=== PATIENT | female | born 1960 | race Caucasian/White ===

== ENCOUNTER → 2017-01-20 | Outpatient (CLI) | payer BC ==
[~2017-01-20] MED LIST: ACET-1175 PO; OXYC1TAB3 PO; VNTHFA/IN INH
--- NOTE | 2017-01-20 11:05 | DIAGNOSTIC IMAGING REPORT ---
CHEST 2 VIEWS ROUTINE CLINICAL HISTORY: CHEST TIGHTNESS dyspnea COMPARISON STUDY: No previous studies for comparison. FINDINGS: The bones soft tissues and hemidiaphragms are normal. The cardiomediastinal silhouette is normal. The lungs are clear. The pulmonary vasculature is normal. IMPRESSION: Negative chest. Electronically signed by: Lorenzo Bean M.D. 01/20/2017 11:03 AM Dictated Date/Time: 01/20/2017 11:03 AM
[2017-01-20 13:34] LABS: BASO % 0.7 %; BASO ABS # 0.04 K/uL (0-0.2); COMPLETE YES; EOS % 8.5 %; HEMATOCRIT 42.1 % (37-47); IG% 0.2 %; LYMPH % 32.4 %; MEAN CELL VOLUME 93.6 fL (80-100); MEAN CORPUSCULAR HEMOGLOBIN 32.7 pg (25-34); MEAN CORPUSCULAR HGB CONC 34.9 g/dl (32-36); MONO % 7.2 %; PLATELET COUNT 264 K/uL (130-400); WHITE BLOOD COUNT 5.56 K/uL (4.8-10.8)
[2017-01-20 14:50] LABS: ALT/SGPT 26 U/L (12-78); AST/SGOT 16 U/L (15-37); BLOOD UREA NITROGEN 14 mg/dl (7-18); BUN/CREATININE RATIO 18.3 (10-20); CALCIUM 9.3 mg/dl (8.5-10.1); CARBON DIOXIDE 28 mmol/L (21-32); CHLORIDE 107 mmol/L (98-107); CREATININE 0.74 mg/dl (0.60-1.20); GLUCOSE 94 mg/dl (70-99); SODIUM 141 mmol/L (136-145)
[2017-01-20 15:02] LABS: ALB/GLOB RATIO 1.2 (0.9-2); ALKALINE PHOSPHATASE 72 U/L (45-117); CHOLESTEROL 202 mg/dl (0-200); CHOLESTEROL/HDL RATIO 2.7; HDL CHOLESTEROL 74 mg/dl; LDL CHOLESTEROL CALCULATED 111 mg/dl; MAGNESIUM 2.2 mg/dl (1.8-2.4); TRIGLYCERIDES 84 mg/dl (0-150); VERY LOW DENSITY LIPOPROT CALC 17 mg/dl
== END | disposition home or self-care (01) ==
LOC: C.RADBC 10:34
PROVIDERS: ATTEND Nurse Practitioner Family
DX: R07.89 Other chest pain (principal); Z11.59 Encounter for screening for other viral diseases; Z13.220 Encounter for screening for lipoid disorders; Z13.1 Encounter for screening for diabetes mellitus

== ENCOUNTER 2017-02-19 08:26 | Emergency (ER) | payer BC ==
[~2017-02-19] VITALS: Ht 167.6 cm; Wt 71.4 kg
[2017-02-19 08:27] VITALS: TEMP 37; Ht 167.6 cm; Wt 71.4 kg
[2017-02-19] MEDS ORDERED: ALBUT/IPRATROP 3MG/0.5MG NEB 3 ML VIAL INH STA (08:33)
[2017-02-19 08:44] VITALS: O2SAT 100
[2017-02-19] MEDS ORDERED: OPTIRAY 320 IV PRN (08:45)
[2017-02-19] MEDS ORDERED: VNTHFA/IN INH (08:49)
[2017-02-19] MEDS ORDERED: ACET-1175 PO (08:49)
[2017-02-19 08:52] LABS: BASO % 0.6 %; BASO ABS # 0.03 K/uL (0-0.2); COMPLETE YES; EOS % 7.3 %; HEMATOCRIT 42.6 % (37-47); IG% 0.2 %; LYMPH % 38.8 %; LYMPH ABS # 2.07 K/uL (1.2-3.4); MEAN CELL VOLUME 92.2 fL (80-100); MEAN CORPUSCULAR HEMOGLOBIN 32.3 pg (25-34); MEAN PLATELET VOLUME 10.3 fL (7.4-10.4); MONO % 8.4 %; NEUT % 44.7 %; PLATELET COUNT 291 K/uL (130-400); RED BLOOD COUNT 4.62 M/uL (4.2-5.4); WHITE BLOOD COUNT 5.34 K/uL (4.8-10.8)
[2017-02-19 09:00] LABS: PROTHROMBIN TIME (PATIENT) 10.6 SECONDS (9.0-12.0)
[2017-02-19 09:07] LABS: POINT OF CARE PRO-BNP 52 pg/ml (0-900); POINT OF CARE TROPONIN I < 0.030 ng/ml (0-0.045)
[2017-02-19 09:09] LABS: BUN/CREATININE RATIO 21.9 (10-20); CALCIUM 9.4 mg/dl (8.5-10.1); CREATININE 0.84 mg/dl (0.60-1.20); POTASSIUM 3.5 mmol/L (3.5-5.1)
[2017-02-19 09:17] LABS: ALB/GLOB RATIO 1.3 (0.9-2); CKMB/CK RATIO 1.7 (0-3.0)
--- NOTE | 2017-02-19 09:41 | DIAGNOSTIC IMAGING REPORT ---
(CHEST FOR PE) ANGIO WITH CLINICAL HISTORY: 56 years-old Female presenting with shortness of breath for one month, chest tightness, clinical concern for pulmonary embolus. TECHNIQUE: Multidetector CT angiography of the chest was performed after administration of intravenous contrast. 3-D volumetric and maximum intensity projection (MIP) images were subsequently reconstructed for review. IV contrast: 83 mL of Optiray 320. COMPARISON: Correlation made to plain radiographs of the chest from 01/20/2017. CT DOSE: The estimated cumulative dose is 220.03 mGy.cm. FINDINGS: [employer] topogram: Cortical compression plate and screw fixation of the left scapula. Cholecystectomy clips. Pulmonary vasculature: The study is adequate for assessment of the pulmonary vascular tree. No filling defect within the pulmonary arteries to suggest embolus. Main pulmonary artery not enlarged. No flattening of the interventricular septum. No intracardiac filling defect. Remaining chest: On soft tissue windows, tiny nodule noted in the posterior right lobe of the thyroid. No axillary or supraclavicular lymphadenopathy. Few prominent prevascular mediastinal and right hilar lymph nodes. Four-vessel arch noted. Top normal heart size. Trace pericardial effusion. No pleural effusion. Upper abdomen remarkable for cholecystectomy clips. Well-defined hypodensity in the left hepatic lobe indeterminate but likely hepatic cyst or hamartoma. Chest wall normal. On lung windows, minimal dependent opacities likely atelectasis. Mosaic attenuation at the apices may indicate small airways disease. Mild bronchial wall thickening may also be present. On bone windows, cortical compression plate and screw fixation of the lateral left scapula. No apparent hardware complication. IMPRESSION: 1. No evidence of pulmonary embolus. 2. Mosaic attenuation and mild bronchial wall thickening may suggest small airways disease. No focal infiltrate to suggest pneumonia. 3. Subcentimeter right hilar and mediastinal lymph nodes likely reactive. Electronically signed by: Reese Baez M.D. 02/19/2017 9:39 AM Dictated Date/Time: 02/19/2017 9:28 AM
--- NOTE | 2017-02-19 11:03 | EMERGENCY ROOM VISIT NOTE ---
History Report prepared by Eron: Ariana Dowling Under the Supervision of: Dr. Anatoly Murillo D.O. First contact with patient: 08:32 Chief Complaint: SHORTNESS OF BREATH Stated Complaint: CHEST SQUEEZING/ SHORTNESS OF BREATH Nursing Triage Summary: Pt reports "struggling to breathe even when using inhalers every hour. I saw the pulmonary dr on and had some tests done and a breathing treatment, which helped. Yesterday it got bad again. I am coughing up dark yellow. I've been having trouble breathing for a few weeks." Denies hx of asthma. History of Present Illness The patient is a 56 year old female who presents to the Emergency Room with complaints of worsening SOB for the past 1.5 months. The patient had a chest X- ray 1 month ago as an outpatient which showed no acute disease. She went to her PCP 2 days ago and received a breathing treatment which helped. She was told that she might have adult onset asthma or COPD. Since then, she has had continued SOB. Her SOB has improved after using her inhaler. She spoke with her PCP this morning who told her that she might have an infection and might require a CT. She reports a squeezing sensation in her chest and a productive cough. She feels anxious and believes that she might be having anxiety. She denies any history of smoking, but notes that her parents did. Source of History: patient Onset: 1.5 months Position: other (global) Quality: other (SOB) Timing: worsening Associated Symptoms: + cough, + chest pain Note: Pt feels anxious. Review of Systems See HPI for pertinent positives & negatives. A total of 10 systems reviewed and were otherwise negative. Past Medical & Surgical Surgical Problems: (1) History of back surgery Family History Cancer Heart disease Kidney disease Kidney stones Lung disease Social History Smoking Status: Never Smoker Occupation Status: employed Current/Historical Medications Scheduled Acetaminophen (Tylenol), 650 MG PO NEEDED Scheduled PRN Albuterol Hfa (Ventolin Hfa), 2 PUFFS INH Q4 PRN for Shortness of Breath Allergies Coded Allergies: Benzoin (Verified Allergy, Unknown, 07/25/16) Gabapentin (Verified Allergy, Unknown, 07/25/16) Physical Exam Vital Signs Date Time Temp Pulse Resp B/P (MAP) Pulse Ox O2 Delivery O2 Flow Rate FiO2 02/19/17 11:41 74 16 109/75 95 7 11:12 70 19 97 7 11:12 70 19 97 7 11:07 71 17 98 02/19/17 11:07 71 17 98 7 11:02 71 22 96 7 11:02 71 22 96 02/19/17 10:57 69 12 99 02/19/17 10:57 69 12 99 02/19/17 10:52 63 16 95 02/19/17 10:52 63 16 95 02/19/17 10:47 71 16 96 02/19/17 10:47 71 16 96 02/19/17 10:42 71 17 99 02/19/17 10:42 71 17 99 02/19/17 10:37 74 21 96 02/19/17 10:32 72 19 95 02/19/17 10:27 68 13 96 02/19/17 10:22 76 17 94 02/19/17 10:17 73 10 95 02/19/17 10:12 65 16 98 02/19/17 10:07 60 11 96 02/19/17 10:02 63 15 98 02/19/17 09:57 77 17 100 02/19/17 09:52 76 12 88 02/19/17 09:47 73 17 95 02/19/17 09:42 75 19 93 02/19/17 09:37 79 15 97 02/19/17 09:32 69 17 99 02/19/17 09:29 117/55 02/19/17 09:12 69 11 96 02/19/17 09:07 78 30 98 02/19/17 09:02 112/60 02/19/17 09:01 70 13 100 02/19/17 08:56 70 14 100 02/19/17 08:51 71 20 100 02/19/17 08:50 81 02/19/17 08:44 100 Room Air 02/19/17 08:43 133/91 02/19/17 08:27 37.0 90 20 142/66 99 Room Air Physical Exam CONSTITUTIONAL/VITAL SIGNS: Reviewed / noted above. GENERAL: Non-toxic in appearance. INTEGUMENTARY: Warm, dry, and [place]. HEAD: Normocephalic. EYES: without scleral icterus or trauma. ENT/OROPHARYNX: clear and moist. LYMPHADENOPATHY/NECK: Is supple without lymphadenopathy or meningismus. RESPIRATORY: Lungs clear and equal. CARDIOVASCULAR: Regular rate and rhythm. GI/ABDOMEN: Soft and nontender. No organomegaly or pulsatile mass. No rebound or guarding. Normal bowel sounds. EXTREMITIES: Warm and well perfused. BACK: No CVA tenderness. NEUROLOGICAL: Intact without focal deficits. PSYCHIATRIC: Anxious appearing. MUSCULOSKELETAL: Normally developed with good muscle tone. Medical Decision & Procedures ER Provider Diagnostic Interpretation: Radiology results as stated below per my review and radiologist interpretation: (CHEST FOR PE) ANGIO WITH CLINICAL HISTORY: 56 years-old Female presenting with shortness of breath for one month, chest tightness, clinical concern for pulmonary embolus. TECHNIQUE: Multidetector CT angiography of the chest was performed after administration of intravenous contrast. 3-D volumetric and maximum intensity projection (MIP) images were subsequently reconstructed for review. IV contrast: 83 mL of Optiray 320. COMPARISON: Correlation made to plain radiographs of the chest from 01/20/2017. CT DOSE: The estimated cumulative dose is 220.03 mGy.cm. 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 Cholecystectomy clips. Pulmonary vasculature: The study is adequate for assessment of the pulmonary vascular tree. No filling defect within the pulmonary arteries to suggest embolus. Main pulmonary artery not enlarged. No flattening of the interventricular septum. No intracardiac filling defect. Remaining chest: On soft tissue windows, tiny nodule noted in the posterior right lobe of the thyroid. No axillary or supraclavicular lymphadenopathy. Few prominent prevascular mediastinal and right hilar lymph nodes. Four-vessel arch noted. Top normal heart size. Trace pericardial effusion. No pleural effusion. Upper abdomen remarkable for cholecystectomy clips. Well-defined hypodensity in the left hepatic lobe indeterminate but likely hepatic cyst or hamartoma. Chest wall normal. On lung windows, minimal dependent opacities likely atelectasis. Mosaic attenuation at the apices may indicate small airways disease. Mild bronchial wall thickening may also be present. On bone windows, cortical compression plate and screw fixation of the lateral left scapula. No apparent hardware complication. IMPRESSION: 1. No evidence of pulmonary embolus. 2. Mosaic attenuation and mild bronchial wall thickening may suggest small airways disease. No focal infiltrate to suggest pneumonia. 3. Subcentimeter right hilar and mediastinal lymph nodes likely reactive. Electronically signed by: Reese Baez M.D. 02/19/2017 9:39 AM Dictated Date/Time: 02/19/2017 9:28 AM Laboratory Results 02/19/17 08:40 Red Blood Count 4.62, Mean Corpuscular Volume 92.2, Mean Corpuscular Hemoglobin 32.3, Mean Corpuscular Hemoglobin Concent 35.0, Mean Platelet Volume 10.3, Neutrophils (%) (Auto) 44.7, Lymphocytes (%) (Auto) 38.8, Monocytes (%) (Auto) 8.4, Eosinophils (%) (Auto) 7.3, Basophils (%) (Auto) 0.6, Neutrophils # (Auto) 2.39, Lymphocytes # (Auto) 2.07, Monocytes # (Auto) 0.45, Eosinophils # (Auto) 0.39, Basophils # (Auto) 0.03 02/19/17 08:40 Test 02/19/17 08:40 02/19/17 08:44 White Blood Count 5.34 K/uL (4.8-10.8) Red Blood Count 4.62 M/uL (4.2-5.4) Hemoglobin 14.9 g/dL (12.0-16.0) Hematocrit 42.6 % (37-47) Mean Corpuscular Volume 92.2 fL (80-100) Mean Corpuscular Hemoglobin 32.3 pg (25-34) Mean Corpuscular Hemoglobin Concent 35.0 g/dl (32-36) Platelet Count 291 K/uL (130-400) Mean Platelet Volume 10.3 fL (7.4-10.4) Neutrophils (%) (Auto) 44.7 % Lymphocytes (%) (Auto) 38.8 % Monocytes (%) (Auto) 8.4 % Eosinophils (%) (Auto) 7.3 % Basophils (%) (Auto) 0.6 % Neutrophils # (Auto) 2.39 K/uL (1.4-6.5) Lymphocytes # (Auto) 2.07 K/uL (1.2-3.4) Monocytes # (Auto) 0.45 K/uL (0.11-0.59) Eosinophils # (Auto) 0.39 K/uL (0-0.5) Basophils # (Auto) 0.03 K/uL (0-0.2) RDW Standard Deviation 42.5 fL (36.4-46.3) RDW Coefficient of Variation 12.6 % (11.5-14.5) Immature Granulocyte % (Auto) 0.2 % Immature Granulocyte # (Auto) 0.01 K/uL (0.00-0.02) Prothrombin Time 10.6 SECONDS (9.0-12.0) Prothromb Time International Ratio 1.0 (0.9-1.1) Activated Partial Thromboplast Time 25.1 SECONDS (21.0-31.0) Partial Thromboplastin Ratio 1.0 Anion Gap 7.0 mmol/L (3-11) Est Creatinine Clear Calc Drug Dose 77.5 ml/min Estimated GFR () 91.3 Estimated GFR (Non- 78.8 BUN/Creatinine Ratio 21.9 (10-20) Calcium Level 9.4 mg/dl (8.5-10.1) Total Bilirubin 0.6 mg/dl (0.2-1) Aspartate Amino Transf (AST/SGOT) 19 U/L (15-37) Alanine Aminotransferase (ALT/SGPT) 23 U/L (12-78) Alkaline Phosphatase 71 U/L (45-117) Total Creatine Kinase 109 U/L (26-192) Creatine Kinase MB 1.9 ng/ml (0.5-3.6) Creatine Kinase MB Ratio 1.7 (0-3.0) Total Protein 7.7 gm/dl (6.4-8.2) Albumin 4.4 gm/dl (3.4-5.0) Globulin 3.3 gm/dl (2.5-4.0) Albumin/Globulin Ratio 1.3 (0.9-2) Bedside D-Dimer 187 ng/mlFEU (0-450) Bedside Troponin I < 0.030 ng/ml (0-0.045) RR-Bcz-V-Type Natriuretic Peptide 52 pg/ml (0-900) Laboratory results as stated above per my review. Medications Administered Medications (Trade) Dose Ordered Sig/Aries Route Start Time Stop Time Status Last Admin Dose Admin Albuterol/ Ipratropium (Duoneb) 3 ml NOW STAT INH 02/19/17 08:33 02/19/17 08:34 DC 02/19/17 08:47 3 ML ECG Indication: SOB/dyspnea Rate (beats per minute): 71 Rhythm: normal sinus Findings: no ectopy, other (no acute injury) ED Course 0833: Duoneb 3 ml INH. 0837: Previous medical records were reviewed. The patient was evaluated in room B12B. A complete history and physical examination was performed. 1104: On reevaluation, the patient is resting comfortably. I discussed the results and findings with the patient. She verbalized agreement of the treatment plan. She was discharged home. Medical Decision the differential was considered includes acute myocardial infarction, acute coronary syndrome, myocarditis, pericarditis, pericardial effusions /tamponad, esophageal perforation, pulmonary embolism, pneumonia, pneumothorax, cardiomyopathy, congestive heart, anemia , COPD/asthma exacerbation. This is a 56-year-old female who presents to the ED with a chief complaint of shortness of breath. The patient saw Dany Lorenzana (pulmonology PA-C) on Thursday. The patient has some outpatient testing pending. She had a normal chest x-ray a month ago. She has been feeling that she has intermittent shortness of breath for weeks. The patient's vital signs here are normal. Her physical exam did not reveal any abnormalities. Her lungs are clear. She appears to be slightly anxious. An EKG shows a normal sinus rhythm. CBC is normal, d-dimer is negative, CT scan of the chest was negative for acute disease. Some small airway disease was suggested. Troponin was negative. Complete metabolic panel was unremarkable. Patient was given a DuoNeb treatment. She is told the results. She is felt to be stable for discharge. The patient clinically feels her symptoms are related to anxiety. I feel this is a large component of her symptoms as well. Medication Reconcilliation Current Medication List: was personally reviewed by me Blood Pressure Screening Patient's blood pressure: Elevated blood pressure Blood pressure disposition: Elevated BP felt to be situational Impression Primary Impression: Dyspnea Additional Impression: Anxiety Scribe Attestation The scribe's documentation has been prepared under my direction and personally reviewed by me in its entirety. I confirm that the note above accurately reflects all work, treatment, procedures, and medical decision making performed by me. Departure Information Dispostion Home / Self-Care Referrals No Doctor, Assigned (PCP) Patient Instructions [facility] Additional Instructions Follow-up with your doctor for further care and evaluation in 1-2 days. Return to the emergency department for worsening or new symptoms or any concerns. You have been examined and treated today on an emergency basis only. This is not a substitute for, or an effort to provide, complete comprehensive medical care. It is impossible to recognize and treat all injuries or illnesses in a single emergency department visit. It is therefore important that you follow up closely with your doctor. Call as soon as possible for an appointment. Problem Qualifiers
[2017-02-19 11:41] VITALS: BP 109/75; PULSE 74; O2SAT 95
== END 2017-02-19 11:42 | disposition home or self-care (01) ==
LOC: C.EDB 08:27
DX: R06.00 Dyspnea, unspecified (principal); F41.9 Anxiety disorder, unspecified; Z84.1 Family history of disorders of kidney and ureter

== ENCOUNTER → 2017-03-02 | Outpatient (CLI) | payer BC ==
[~2017-03-02] MED LIST changes: -OXYC1TAB3 PO
--- NOTE | 2017-03-02 17:10 | ECHOCARDIOGRAM REPORT ---
*NOTICE TO RECEIVING DEMOCRAT AGENCY This information is strictly Confidential and protected under [place] law. [place] law prohibits you from making any further disclosure of this information unless further disclosure is expressly permitted by the written consent of the person to whom it pertains or is authorized by law. A general authorization for the release of medical or other information is not sufficient for this purpose. Hospital accepts no responsibility if the information is made available to any other person, INCLUDING THE PATIENT. Interpretation Summary * Name: RAFFY KHAN Study Date: 03/02/2017 12:51 PM BP: 115/53 mmHg * Patient Location: [facility] HR: 57 * : 1960 (M/d/yyyy) Gender: Female Height: 66 in * Age: 56 yrs Ethnicity: [place] Weight: 155 lb * Ordering Physician: Dany Lorenzana * Referring Physician: Dany Lorenzana PA-C * Performed By: Thea Haines RCS * * Reason For Study: Chest Pain, SOB * BSA: 1.8 m2 * Normal biventricular systolic function. * Normal chamber dimensions. * Trace mitral and tricuspid regurgitation. * No significant valvular abnormalities. Procedure Details * A complete two-dimensional transthoracic echocardiogram was performed (2D, M-mode, Doppler and color flow Doppler). Left Ventricle * The left ventricle is normal in size. * There is normal left ventricular wall thickness. * Ejection Fraction = 65-70%. * Left ventricular systolic function is normal. * The left ventricular wall motion is normal. Right Ventricle * The right ventricle is normal in size and function. Atria * The left atrial size is normal. * Right atrial size is normal. * No ASD detected; PFO is not assessed. Mitral Valve * The mitral valve is normal. * There is no mitral valve stenosis. * There is trace mitral regurgitation. Tricuspid Valve * The tricuspid valve is normal. * There is no tricuspid stenosis. * There is trace tricuspid regurgitation. Aortic Valve * The aortic valve is trileaflet. * The aortic valve opens well. * Aortic stenosis is absent. * No aortic regurgitation is present. Pulmonic Valve * The pulmonic valve is not well seen, but is grossly normal. * There is no pulmonic valvular stenosis. * There is no pulmonic valvular regurgitation. Great Vessels * The aortic root is normal size. Pericardium/Pleural * There is no pericardial effusion. Great Vessels * Normal inferior vena cava diameter and respiratory variation suggests normal central venous pressure. MMode 2D Measurements and Calculations IVSd 0.86 cm IVSs 1.0 cm LVIDd 4.5 cm LVIDs 2.8 cm LVPWd 0.86 cm LVPWs 1.1 cm IVS/LVPW 10 FS 39.2 % EDV(Teich) 94.0 ml ESV(Teich) 28.4 ml EF(Teich) 69.8 % EDV(cubed) 93.0 ml ESV(cubed) 20.9 ml EF(cubed) 77.5 % % IVS thick 17.9 % % LVPW thick 28.7 % LV mass(C)d 126.5 grams LV mass(C)dI 70.5 grams/m\S\2 LV mass(C)s 79.7 grams LV mass(C)sI 44.4 grams/m\S\2 SV(Teich) 65.6 ml SI(Teich) 36.5 ml/m\S\2 SV(cubed) 72.1 ml SI(cubed) 40.2 ml/m\S\2 Ao root diam 3.5 cm Ao root area 9.4 cm\S\2 ACS 1.9 cm LA dimension 2.5 cm asc Aorta Diam 2.5 cm LA/Ao 0.74 LVAd ap4 27.8 cm\S\2 LVLd ap4 7.9 cm EDV(MOD-sp4) 81.1 ml EDV(sp4-el) 82.4 ml LVAs ap4 14.5 cm\S\2 LVLs ap4 6.8 cm ESV(MOD-sp4) 25.8 ml ESV(sp4-el) 26.3 ml EF(MOD-sp4) 68.2 % EF(sp4-el) 68.0 % LVAd ap2 34.7 cm\S\2 LVLd ap2 8.9 cm EDV(MOD-sp2) 113.5 ml EDV(sp2-el) 115.1 ml LVAs ap2 17.4 cm\S\2 LVLs ap2 6.3 cm ESV(MOD-sp2) 39.8 ml ESV(sp2-el) 41.0 ml EF(MOD-sp2) 64.9 % EF(sp2-el) 64.4 % LVLd %diff 10.5 % EDV(MOD-bp) 101.0 ml LVLs %diff -7.98 % ESV(MOD-bp) 32.8 ml EF(MOD-bp) 67.5 % SV(MOD-sp4) 55.3 ml SI(MOD-sp4) 30.8 ml/m\S\2 SV(MOD-sp2) 73.6 ml SI(MOD-sp2) 41.0 ml/m\S\2 SV(MOD-bp) 68.2 ml SI(MOD-bp) 38.0 ml/m\S\2 SV(sp4-el) 56.1 ml SI(sp4-el) 31.2 ml/m\S\2 SV(sp2-el) 74.1 ml SI(sp2-el) 41.3 ml/m\S\2 Doppler Measurements and Calculations MV E max chavo 66.9 cm/sec MV A max chavo 46.9 cm/sec MV E/A 1.4 MV dec time 0.22 sec Ao V2 max 119.0 cm/sec Ao max PG 5.7 mmHg Ao max PG (full) 0.16 mmHg LV V1 max PG 5.5 mmHg LV V1 max 117.3 cm/sec PA V2 max 74.1 cm/sec PA max PG 2.2 mmHg TR max chavo 113.9 cm/sec
== END | disposition home or self-care (01) ==
LOC: C.CPL 12:41
PROVIDERS: ATTEND Physician Assistant
DX: R06.02 Shortness of breath (principal); R07.89 Other chest pain

== ENCOUNTER → 2018-02-19 | Outpatient (CLI) | payer BC ==
[2018-02-19 13:18] LABS: BASO % 0.1 %; BASO ABS # 0.01 K/uL (0-0.2); EOS % 2.2 %; EOS ABS # 0.22 K/uL (0-0.5); HEMATOCRIT 41.8 % (37-47); HEMOGLOBIN 14.5 g/dL (12.0-16.0); IG# 0.02 K/uL (0.00-0.02); LYMPH % 23.3 %; LYMPH ABS # 2.36 K/uL (1.2-3.4); MEAN CELL VOLUME 92.5 fL (80-100); MEAN CORPUSCULAR HEMOGLOBIN 32.1 pg (25-34); MEAN CORPUSCULAR HGB CONC 34.7 g/dl (32-36); MEAN PLATELET VOLUME 10.5 fL (7.4-10.4); MONO % 6.3 %; MONO ABS # 0.64 K/uL (0.11-0.59); NEUT % 67.9 %; NEUT ABS # 6.86 K/uL (1.4-6.5); PLATELET COUNT 301 K/uL (130-400); RED CELL DISTRIBUTION WIDTH CV 13.1 % (11.5-14.5); WHITE BLOOD COUNT 10.11 K/uL (4.8-10.8)
== END | disposition home or self-care (01) ==
LOC: C.LAB1850 12:32
PROVIDERS: ATTEND Internal Medicine Pulmonary Disease
DX: J30.9 Allergic rhinitis, unspecified (principal); J45.909 Unspecified asthma, uncomplicated

== ENCOUNTER 2023-07-22 09:31 | Inpatient (IN) ==
[2023-07-22] MEDS ORDERED: SODIUM CHLORIDE 0.9% 1,000 ML IV SCH (09:45)
[2023-07-22] MEDS ORDERED: ALBUT/IPRATROP 3MG/0.5MG NEB 3 ML VIAL NEB STA (09:51)
[2023-07-22] MEDS ORDERED: ACETAMINOPHEN 1,000 MG/100 ML VIAL IV STA (09:51)
[2023-07-22] MEDS ORDERED: ONDANSETRON INJ 2 MG/ML 2 ML VIAL IV STA (09:51)
--- NOTE | 2023-07-22 09:58 | Emergency Department Note ---
Impression & Plan Weakness, Influenza A, Acute dehydration, Wheezing, Lower back pain, Fall ED Provider Note NAME: RAFFY GUILLEN AGE: 62 SEX: F : 1960 ARRIVES VIA: Walk-In INFORMANT: [Patient] ED PROVIDER(S): [Munir Blanco MD] CHIEF COMPLAINT: Illness HISTORY OF PRESENT ILLNESS: The patient is a 62-year-old female who presents with weakness and fever and cough. She has been sick for a week. The patient was diagnosed with influenza A on the , 6 days ago. She has asthma. She was discharged with steroids because of the asthma. She declined the use of Tamiflu. The patient states that her vomiting seems to have stopped but, she still coughing, she is still weak, she is still exhausted. She is having some slight diarrhea. The patient has not had urinary burning. She has noticed some shortness of breath. She just is not getting better. The patient did take some Advil this morning. The patient did fall off of the toilet within the last couple of days. This was secondary to weakness and a coughing fit. She injured her right low back and pelvis. She has not noticed any bruising. PMHx/PSHx/Social Hx: See Below PHYSICAL EXAM: GENERAL: Patient is in no acute distress. HEENT: No acute trauma, normocephalic atraumatic, mucous membranes dry, no nasal congestion. NECK: No stridor, no adenopathy, no meningismus, trachea is midline. LUNGS: Wheezing bilaterally, no respiratory distress, no rhonchi. Dry cough noted. HEART: Without murmurs gallops or rubs, regular rate and rhythm. ABDOMEN: Soft, nontender, no peritonitis. EXTREMITIES: No cyanosis, full range of motion of all the joints without pain or difficulty. NEUROLOGIC: Oriented x 3, no acute motor or sensory deficits, no focal weakness. SKIN: No jaundice, no diaphoresis. Back: No midline lumbar discomfort. No contusions. She is tender over the right lumbar musculature and right superior pelvic brim. DIFFERENTIAL DIAGNOSIS: Pneumonia, bronchitis, dehydration, electrolyte imbalance, bacteremia or sepsis, UTI, electrolyte imbalance, anemia, among others. EMERGENCY DEPARTMENT PROCEDURES: MEDICAL DECISION MAKING: There is no leukocytosis or concerning anemia. There is a normal platelet count. Potassium somewhat low at 3.2, no renal failure. Lactic acid level is not elevated making severe sepsis less likely. No concerning liver enzyme elevation. The patient appeared to be in a euthyroid state. ECG shows a sinus rhythm, no ST elevation. Cardiac enzyme testing x 1 is not consistent with acute cardiac injury. Urinalysis shows some ketones, no infection. Respiratory bio fire was positive for influenza A. Chest film did not show pneumonia or CHF. On exam, the patient appeared weak and dehydrated. Films of the lumbar spine and pelvis were performed, there was no fracture. The patient received IV saline, 2 L. The patient received oral potassium, IV Zofran, a DuoNeb. She was given IV Tylenol. The patient still feels weak and washed out. She presented febrile. She had fallen at home because of her weakness and fatigue. The patient is in need of a hospital stay. She has failed outpatient treatment. She has influenza A and this has flared her asthma and led to her weakness and dehydration. I spoke with the patient and with her friends. I did speak with case management and the on-call hospitalist. Of note, the patient's back pain appears musculoskeletal, I find no evidence for fracture on today's workup. Prior/Outside records/notes reviewed: ED visit note from 07/16/2023 discussing her diagnosis of influenza A and the plan moving forward. ECG per my interpretation: Indication was weakness. The ECG shows a sinus rhythm with a first-degree AV block. There is no ST elevation, no PVCs. There is a potential old septal infarct seen. QTc is 414. Continuous Cardiac Monitoring per my interpretation: An order was placed for continuous cardiac monitoring. The monitor shows a rate of 75 with normal sinus rhythm. Imaging/x-ray results per my interpretation: Chest x-ray did not show mediastinal widening, pneumonia or pneumothorax. Lumbar spine series and pelvis film did not show any fracture or bony dislocation. Chronic Medical/Social conditions affecting care: History of asthma. Care/Management discussed with: Case management, the on-call hospitalist. Level of care consideration(s): After review of the information above and other included data: --I believe the patient requires escalation of care to admission DISPOSITION: Admission Past Med/Surg History Medical History (Updated 07/22/23 @ 16:36 by Munir Blanco MD) Asthma Surgical History S/P cholecystectomy S/P wrist surgery S/P shoulder surgery History of back surgery Family History Mother Cancer Father Congestive heart failure Denies family history of Ovarian cancer Prostate cancer Myocardial infarction Breast cancer Colorectal cancer Social History Smoking Status: Never smoker Second Hand Exposure: No; Do You Dip or Chew Tobacco: No; Hx Alcohol Use: Yes Alcohol type: wine Hx Substance Use: No Preferred Language: Albanian Communication Ability: Effective Visual Impairment: No Limitations Hearing Ability: Normal Guest Service Supervisor Required: No Beliefs That Will Affect Care: None marital status: Current Living Situation: Alone current occupational status: employed current occupation: teacher Other Information That Helps Us Care for You: No Feels Safe at Home: Yes Safety Concerns: Feels Safe At This Time Childhood Exposure to Second-Hand Smoke: Yes Dental Care, Regularly: Yes Physical Activity Frequency: 3-4 Times per Week Seatbelt Use: always Assistive Devices: Cane Allergies Allergies Allergy/AdvReac Type Severity Reaction Status Date / Time benzoin Allergy Unknown Unknown Verified 01/11/22 15:52 gabapentin Allergy Unknown Unknown Verified 01/11/22 15:52 Home Meds Home Medications Medication Instructions Recorded Confirmed fexofenadine 180 mg tablet 180 mg PO DAILY PRN Allergic 12/31/18 07/22/23 (Yvonne Allergy) Symptoms montelukast 10 mg tablet 10 mg PO HS 12/31/18 07/22/23 fluticasone 500 mcg-salmeterol 50 1 inh inhalation AMHS 02/16/20 07/22/23 mcg/dose blistr powdr for inhalation (Advair Diskus) tiotropium bromide 2.5 2 inh inhalation QAM 02/16/20 07/22/23 mcg/actuation mist for inhalation (Spiriva Respimat) valacyclovir 1 gram tablet 2,000 mg PO DIRECTED PRN Cold 02/16/20 07/22/23 Sores ondansetron 4 mg disintegrating 4 mg PO DIRECTED PRN Nausea And 07/22/23 07/22/23 tablet Vomiting prednisone 20 mg tablet 20 mg PO DIRECTED 07/22/23 07/22/23 Previous Rx's Medication Instructions Recorded albuterol sulfate 90 mcg/actuation 2 puff inhalation Q4H PRN Wheezing 06/03/19 aerosol inhaler #18 grams albuterol sulfate 2.5 mg/3 mL 2.5 mg (3 mL) inhalation Q4H PRN 06/28/19 (0.083 %) solution for nebulization Wheezing #90 mL Results & Data (ED) Vital Signs Vital Signs - 24 hr 07/22/23 09:38 07/22/23 13:09 07/22/23 13:16 Temperature 38.0 C H Temperature Source Temporal Artery Scan Pulse Rate 75 Pulse Rate [Apical] 50 L Pulse Rhythm Regular Pulse Strength Normal Respiratory Rate 20 18 Respiratory Effort / Characteristics Non-Labored Spontaneous Respiratory Depth Normal Respiratory Pattern Regular Blood Pressure 131/67 Blood Pressure [Right Arm] 111/49 L Blood Pressure Mean 88 Blood Pressure Mean [Right Arm] 69 Blood Pressure Position Sitting Pulse Oximetry 98 98 98 Oxygen Delivery Method Room Air Room Air Room Air Sepsis Recent Fever Within 48 Hours Yes Sepsis New/Unexplained Change in Mental Status No Sepsis Action Taken by Nursing No Action Required Home Medications Current Medication List: was personally reviewed by me Laboratory Data Attestation: I reviewed the patient's lab results. 07/22/23 09:54 07/22/23 09:54 Lab Results 07/22/23 Range/Units 09:54 WBC 4.63 L (4.8-10.8) K/ul RBC 4.68 (4.20-5.40) M/uL Hgb 14.7 (12.0-16.0) g/dl Hct 42.8 (37.0-47.0) % MCV 91.5 (80.0-100.0) fL MCH 31.4 (25.0-34.0) pg MCHC 34.3 (32.0-36.0) g/dL RDW Std Deviation 39.9 (36.4-46.3) fL RDW Coeff of Catarino 11.9 (11.5-14.5) % Plt Count 199 (130-400) K/uL MPV 10.0 (9.4-12.4) fL Immature Gran % (Auto) 0.2 % Neut % (Auto) 46.1 % Lymph % (Auto) 45.8 % [place] % (Auto) 6.9 % Eos % (Auto) 0.6 % Baso % (Auto) 0.4 % Neut # (Auto) 2.13 (1.40-6.50) K/uL Lymph # (Auto) 2.12 (1.20-3.40) K/uL [place] # (Auto) 0.32 (0.11-0.59) K/uL Eos # (Auto) 0.03 (0.00-0.50) K/uL Baso # (Auto) 0.02 (0.00-0.20) K/uL Immature Gran # (Auto) 0.01 (0.01-0.20) K/uL Sodium 141 (136-145) mmol/L Potassium 3.2 L (3.5-5.1) mmol/L Chloride 105 (98-107) mmol/L Carbon Dioxide 26 (21-32) mmol/L Anion Gap 10 (3-11) BUN 20 (6-23) mg/dl Creatinine 0.75 (0.6-1.2) mg/dl Est Cr Clr Drug Dosing 74.7 ml/min Est GFR ( Amer) 100.4 ml/min Est GFR (Non-Af Amer) 86.6 ml/min BUN/Creatinine Ratio 26.7 H (10-20) Glucose 86 (70-99(Fasting)) mg/dl Lactate 1.8 (0.4-2.0) mmol/L Calcium 8.9 (8.6-10.3) mg/dl Magnesium 1.9 (1.7-2.4) mg/dl Total Bilirubin 0.6 (0.2-1.0) mg/dl AST 18 (13-39) U/L ALT 18 (7-52) U/L Alkaline Phosphatase 48 (34-104) U/L Troponin I High Sens 3.8 (0-14) pg/ml Total Protein 6.8 (6.0-8.3) gm/dl Albumin 4.2 (3.4-5.0) gm/dl Globulin 2.6 (2.5-4.0) gm/dl Albumin/Globulin Ratio 1.6 (0.9-2) TSH 1.779 (0.300-4.500) uIu/ml Adenovirus (PCR) Not Detected (NotDetected) B. pertussis DNA (PCR) Not Detected (NotDetected) B.parapertussis DNA PCR Not Detected (NotDetected) C. pneumoniae DNA (PCR) Not Detected (NotDetected) Coronavirus OC43 (PCR) Not Detected (NotDetected) Coronavirus HKU1 (PCR) Not Detected (NotDetected) Coronavirus 229E (PCR) Not Detected (NotDetected) SARS-CoV-2 (PCR) Not Detected (NotDetected) Coronavirus NL63 (PCR) Not Detected (NotDetected) Human Metapneumovir PCR Not Detected (NotDetected) Influenza A (H3) PCR DETECTED A* (NotDetected) Influenza Type B (PCR) Not Detected (NotDetected) M. pneumoniae (PCR) Not Detected (NotDetected) Parainfluenza 1 (PCR) Not Detected (NotDetected) Parainfluenza 2 (PCR) Not Detected (NotDetected) Parainfluenza 3 (PCR) Not Detected (NotDetected) Parainfluenza 4 (PCR) Not Detected (NotDetected) RSV (PCR) Not Detected (NotDetected) Entero/Rhino (PCR) Not Detected (NotDetected) Administered Medications Enoxaparin Sodium (Enoxaparin Inj 40 Mg/0.4 Ml Syr) 40 mg SQ Q24H [facility] Stop: 08/21/23 16:59 Last Admin: 07/22/23 16:22 Dose: Not Given Documented By: JAILENE Guaifenesin (Guaifenesin 600 Mg Tabcr) 1,200 mg PO Q12 [facility] Stop: 08/21/23 13:24 Last Admin: 07/22/23 13:59 Dose: 1,200 mg Documented By: NRCheco Discontinued Medications Albuterol (Albut/Ipratrop 3mg/0.5mg Neb 3 Ml Vial) 3 ml NEB NOW STA; Protocol Stop: 07/22/23 09:52 Last Admin: 07/22/23 09:58 Dose: 3 ml Documented By: DAVID Sodium Chloride (Nss) 1,000 mls @ 999 mls/hr IV .Q1H1M [facility] Stop: 07/22/23 10:45 Last Infusion: 07/22/23 11:26 Dose: Infused Documented By: Admin: 07/22/23 09:58 Dose: 999 mls/hr Documented By: DAVID Acetaminophen (Ofirmev) 1,000 mg in 100 mls @ 400 mls/hr IV NOW STA Stop: 07/22/23 10:05 Last Infusion: 07/22/23 11:26 Dose: Infused Documented By: Admin: 07/22/23 09:58 Dose: 400 mls/hr Documented By: DAVID Sodium Chloride (Nss) 1,000 mls @ 999 mls/hr IV .Q1H1M ONE Stop: 07/22/23 13:00 Last Infusion: 07/22/23 13:11 Dose: Infused Documented By: Admin: 07/22/23 12:07 Dose: 999 mls/hr Documented By: PRINCE Lidocaine (Lidocaine 5% 1 Patch) 1 patch TD NOW STA Stop: 07/22/23 14:25 Last Admin: 07/22/23 14:50 Dose: 1 patch Documented By: PRINCE Ondansetron HCl (Ondansetron Inj 2 Mg/Ml 2 Ml Vial) 4 mg IV NOW STA Stop: 07/22/23 09:52 Last Admin: 07/22/23 09:58 Dose: 4 mg Documented By: DAVID Potassium Chloride (Potassium Chloride Crtab 20 Meq Tabcr) 20 meq PO NOW STA Stop: 07/22/23 12:00 Last Admin: 07/22/23 12:06 Dose: 20 meq Documented By: PRINCE Pseudoephedrine HCl (Pseudoephedrine Hcl 30 Mg Tab) 30 mg PO NOW STA Stop: 07/22/23 14:28 Last Admin: 07/22/23 14:50 Dose: 30 mg Documented By: PRINCE Imaging Data Radiologist's Impression: Chest X-Ray 07/22/23 09:43 XR chest 1V not portable CLINICAL HISTORY: weakness TECHNIQUE: Single frontal radiograph of the chest was obtained. Comparison: Comparison is made to chest radiograph 07/15/2023 FINDINGS: Orthopedic hardware throughout the left scapula is unchanged. The cardiomediastinal silhouette is normal. The lungs are clear. No evidence of pleural effusion or pneumothorax. IMPRESSION: No acute chest disease. ACT 112: Negative or not required by law. Electronically signed by: Getachew Reed M.D. 07/22/2023 11:04 AM Lumbar Spine X-Ray 07/22/23 09:51 LUMBAR SPINE 5 VIEWS HISTORY: Fall. Low back pain. COMPARISON: Lumbar spine 04/26/2021. FINDINGS: Prior cholecystectomy. Posterior decompression and fusion from L4 through S1 with rods. The hardware is intact. No abnormal periprosthetic lucency. No fracture or subluxation within the lumbar spine. The visualized sacrum is intact. Mild disc space narrowing at L2-L3 and L3-L4, unchanged. Moderate facet degenerative changes again noted. IMPRESSION: No fracture or subluxation within the lumbar spine. ACT 112: Negative or not required by law. Electronically signed by: Camilo Stahl M.D. 07/22/2023 11:00 AM Pelvis X-Ray 07/22/23 09:51 XR pelvis 1-2V routine CLINICAL HISTORY: right sided pain, fall COMPARISON: Pelvis radiograph July 25, 2016. CT of the abdomen and pelvis February 16, 2020. FINDINGS: Postoperative findings within the lumbosacral spine are incidentally noted. Sacroiliac joints and symphysis pubis are intact. There is no acute fracture within the pelvis or hips. Mild joint space narrowing and osteophytosis of the right hip is present. No evidence for avascular necrosis of the femoral heads. IMPRESSION: 1. No fractures within the pelvis or hips. 2. Mild right hip osteoarthritis. ACT 112: Negative or not required by law. Electronically signed by: Quique Simons M.D. 07/22/2023 10:59 AM Discharge Plan Visit Data Chief Complaint: Illness Stated Complaint: FLU SYMPTOMS NOT GETTING BETTER ED Provider: Munir Blanco Discharge Problem: Weakness, Influenza A, Acute dehydration, Wheezing, Lower back pain, Fall Patient Disposition: Admitted As Inpatient Condition: Fair Discharge Instructions Interventions: ED Discharge Assessment Last Done: 07/22/23 15:42 Discharge Problem: Lower back pain Qualifiers: Chronicity: acute Back pain laterality: right Sciatica presence: without sciatica Qualified Code(s): M54.50 - Low back pain, unspecified Fall Qualifiers: Encounter type: initial encounter Qualified Code(s): W19.XXXA - Unspecified fall, initial encounter
[2023-07-22 10:16] LABS: Basophils # (auto) 0.02 K/uL (0.00-0.20); Basophils % (auto) 0.4 %; Eosinophils # (auto) 0.03 K/uL (0.00-0.50); Eosinophils % (auto) 0.6 %; Hematocrit (blood only) 42.8 % (37.0-47.0); Hemoglobin 14.7 g/dl (12.0-16.0); Immature Granulocytes # (auto) 0.01 K/uL (0.01-0.20); Immature Granulocytes % (auto) 0.2 %; Lymphocytes # (auto) 2.12 K/uL (1.20-3.40); Lymphocytes % (auto) 45.8 %; Mean Corpuscular Hemoglobin 31.4 pg (25.0-34.0); Mean Corpuscular Hgb Conc 34.3 g/dL (32.0-36.0); Mean Corpuscular Volume 91.5 fL (80.0-100.0); Monocytes # (auto) 0.32 K/uL (0.11-0.59); Monocytes % (auto) 6.9 %; Neutrophils # (auto) 2.13 K/uL (1.40-6.50); Neutrophils % (auto) 46.1 %; Platelet Count 199 K/uL (130-400); RDW Coefficient of Variation 11.9 % (11.5-14.5); RDW Standard Deviation 39.9 fL (36.4-46.3); Red Blood Count 4.68 M/uL (4.20-5.40); White Blood Count 4.63 K/ul (4.8-10.8)
[2023-07-22 10:35] LABS: Albumin Globulin Ratio 1.6 (0.9-2); Albumin Level 4.2 gm/dl (3.4-5.0); BUN Creatinine Ratio 26.7 (10-20); Bilirubin,Total 0.6 mg/dl (0.2-1.0); Calcium 8.9 mg/dl (8.6-10.3); Creatinine Clr Calc Pharmacy 74.7 ml/min; Est GFR (African American) 100.4 ml/min; Est GFR (Non-African American) 86.6 ml/min; Globulin 2.6 gm/dl (2.5-4.0); Magnesium 1.9 mg/dl (1.7-2.4); Potassium 3.2 mmol/L (3.5-5.1); Total Protein 6.8 gm/dl (6.0-8.3)
[2023-07-22 10:42] LABS: Troponin I High Sensitivity 3.8 pg/ml (0-14)
[2023-07-22 10:51] LABS: Thyroid Stimulating Hormone 1.779 uIu/ml (0.300-4.500)
--- NOTE | 2023-07-22 11:01 | XRay Report ---
XR pelvis 1-2V routine CLINICAL HISTORY: right sided pain, fall COMPARISON: Pelvis radiograph July 25, 2016. CT of the abdomen and pelvis February 16, 2020. FINDINGS: Postoperative findings within the lumbosacral spine are incidentally noted. Sacroiliac rangel nts and symphysis pubis are intact. There is no acute fracture within the pelvis or hips. Mild joint space narrowing and osteophytosis of the right hip is present. No evidence for avascular necrosis of the femoral heads. IMPRESSION: 1. No fractures within the pelvis or hips. 2. Mild right hip osteoarthritis. ACT 112: Negative or not required by law. Electronically signed by: Quique Simons M.D. 07/22/2023 10:59 AM
[2023-07-22 11:02] LABS: Adenovirus PCR Not Detected (NotDetected); Bordetella parapertussis PCR Not Detected (NotDetected); Bordetella pertussis PCR Not Detected (NotDetected); Chlamydia pneumoniae PCR Not Detected (NotDetected); Coronavirus 229E PCR Not Detected (NotDetected); Coronavirus CoV-2 (COVID19)PCR Not Detected (NotDetected); Coronavirus HKU1 PCR Not Detected (NotDetected); Coronavirus NL63 PCR Not Detected (NotDetected); Coronavirus OC43PCR Not Detected (NotDetected); Human Metapneumovirus PCR Not Detected (NotDetected); Influenza B PCR Not Detected (NotDetected); Mycoplasma pneumoniae PCR Not Detected (NotDetected); Parainfluenza Virus 1 PCR Not Detected (NotDetected); Parainfluenza Virus 2 PCR Not Detected (NotDetected); Parainfluenza Virus 3 PCR Not Detected (NotDetected); Parainfluenza Virus 4 PCR Not Detected (NotDetected); Respiratory Syncytial VirusPCR Not Detected (NotDetected); Rhinovirus/Enterovirus PCR Not Detected (NotDetected)
--- NOTE | 2023-07-22 11:02 | XRay Report ---
LUMBAR SPINE 5 VIEWS HISTORY: Fall. Low back pain. COMPARISON: Lumbar spine 04/26/2021. FINDINGS: Prior cholecystectomy. Posterior decompression and fusion from L4 through S1 with rods. Th e hardware is intact. No abnormal periprosthetic lucency. No fracture or subluxation within the lumba r spine. The visualized sacrum is intact. Mild disc space narrowing at L2-L3 and L3-L4, unchanged. Mo derate facet degenerative changes again noted. IMPRESSION: No fracture or subluxation within the lumbar spine. ACT 112: Negative or not required by law. Electronically signed by: Camilo Stahl M.D. 07/22/2023 11:00 AM
--- NOTE | 2023-07-22 11:06 | XRay Report ---
XR chest 1V not portable CLINICAL HISTORY: weakness TECHNIQUE: Single frontal radiograph of the chest was obtained. Comparison: Comparison is made to chest radiograph 07/15/2023 FINDINGS: Orthopedic hardware throughout the left scapula is unchanged. The cardiomediastinal silhouette is nor mal. The lungs are clear. No evidence of pleural effusion or pneumothorax. IMPRESSION: No acute chest disease. ACT 112: Negative or not required by law. Electronically signed by: Getachew Reed M.D. 07/22/2023 11:04 AM
[2023-07-22 11:29] LABS: Influenza A (H3) PCR DETECTED (NotDetected)
[2023-07-22] MEDS ORDERED: POTASSIUM CHLORIDE CRTAB 20 MEQ TABCR PO STA (11:59)
[2023-07-22] MEDS ORDERED: SODIUM CHLORIDE 0.9% 1,000 ML IV ONE (12:00)
[2023-07-22 13:31] LABS: Appearance Urine Clear (Clear); Bilirubin Urine Negative (Negative); Blood Urine Negative (Negative); Color Urine Yellow; Glucose Urine UA Negative (Negative); Ketones Urine 1+ (Negative); Leukocyte Esterase Urine Negative (Negative); Nitrite Urine Negative (Negative); Protein Urine Negative (Negative); Specific Gravity Urine 1.011 (1.000-1.030); Urobilinogen Urine Negative (Negative)
[2023-07-22] MEDS: guaiFENesin 600 MG TABCR PO SCH ×2 (13:59→22:15)
[2023-07-22] MEDS ORDERED: LIDOCAINE 5% 1 PATCH TD STA (14:24)
[2023-07-22] MEDS ORDERED: PSEUDOEPHEDRINE HCL 30 MG TAB PO STA (14:27)
--- NOTE | 2023-07-22 14:30 | History & Physical Report ---
Date of Service July 22, 2023 Assessment & Plan (1) Influenza A: (2) Lower back pain: (3) Fall: Plan Ms. Keon Valencia is a 62 year old woman with history of COPD/asthma and allergic rhinitis, who presented to ED due to progressive weakness after being found to be Influenza A positive. Patient admitted given concerns of ongoing weakness/ambulatory dysfunction. There is no wheezing, nor does patient endorse symptoms consistent with exacerbation. Patient completed course of steroids without improvement and notes that she is subjectively better since being in the hospital, and without introduction of corticosteroids. Patient with multiple visits to PCP regarding "asthma exacerbations" but an eval by pulm to aid in inhaler regimen or further optimization given presenting symptoms and repeated steroid bursts as an outpatient is warranted. #Ambulatory dysfunction #Mechanical fall #Right SI joint discomfort -XRAY reviewed without acute fracture, no tenderness on palpation or symptoms reproducible on exam -Lidocaine patch -Tylenol and flexeril prn PT/OT #Influenza A infection #Viral sinusitis #Chronic allergic rhinitis -No concern for superimposed bacterial infection, inflamed/erythematous turbinates, cobblestoning in oropharynx -Schedule Mucinex q12 -Flutter valve -Schedule Sudafed 30mg TID x 5 days -Start flonase intranasal -Schedule home fexofenadine #Asthma/ COPD "The FEV1, FEV1/FVC ratio and CMC99-57% are reduced indicating airway obstruction.Conclusions:Pulmonary Function Diagnosis:Mild Obstructive Airways Disease -Peripheral AirwayThis preliminary report should not be used clinically unless reviewed and signed by a physician.This interpretation has been electronically signed: Wili Schuler MD 06/12/2022 04:20:09 PM" -Recent spirometry consistent with obstructive airway disease in 2021, reportedly diagnosed with asthma in 50s -Does not take Spiriva; has not used breo/albuterol in one week or Singulair -Continue home breo inhaler daily and montelukast -Albuterol nebs prn -Restart LAMA -Consult pulm for optimization given follow up seems more with allergy clinic rather than pulmonary DVT lovenox Admit med/surg I spent a total of 65 minutes coordinating, documenting, and providing care for this patient excluding time spent in the performance of separately billed services. History of Present Illness Chief Complaint: Progressive weakness Primary Care Provider: Gali Edwards DO Ms. Keon Valencia is a 62 year old woman with history of COPD/asthma and allergic rhinitis, who presented to ED due to progressive weakness after being found to be Influenza A positive. Patient states that she just completed a course of steroids yesterday and states she just feels weak overall. She reports coughing spells, but denies any wheezing or chest tightness consistent with prior exacerbations. She notes she has not followed up in "years" with pulmonary and no longer takes spiriva. She also notes that she has not been compliant with her inhalers for over a week given how weak she has felt. She endorses subjective fevers and occasional productive cough. Patient states she has relied on her albuterol nebulizers which have offered substantial relief, as well as occasional Advil. She notes the advil is due to a mechanical fall she sustained a "few days ago". She has since felt as if there was a "spasm" in her lower right back that is worse with standing straight upright. In ED, vital signs notable for SBP in 110s-130, saturating well on room air, TMAX 38 C. CXR reviewed without consolidation Imaging of pelvis negative for acute fracture Labs notable for low potassium to 3.2 and influenza A (+ 07/15 and 07/22) Potassium replaced PO in ED, Neb given, 2 L IVF Allergies Allergy/AdvReac Type Severity Reaction Status Date / Time benzoin Allergy Unknown Unknown Verified 01/11/22 15:52 gabapentin Allergy Unknown Unknown Verified 01/11/22 15:52 Home Medications Medication Instructions Recorded Confirmed Type fexofenadine 180 mg tablet 180 mg PO DAILY PRN Allergic 12/31/18 07/22/23 History (Yvonne Allergy) Symptoms montelukast 10 mg tablet 10 mg PO HS 12/31/18 07/22/23 History albuterol sulfate 90 mcg/actuation 2 puff inhalation Q4H PRN Wheezing 06/03/19 1 09/22/22 Rx aerosol inhaler #18 grams albuterol sulfate 2.5 mg/3 mL 2.5 mg (3 mL) inhalation Q4H PRN 06/28/19 07/22/23 Rx (0.083 %) solution for nebulization Wheezing #90 mL fluticasone 500 mcg-salmeterol 50 1 inh inhalation AMHS 02/16/20 07/22/23 History mcg/dose blistr powdr for inhalation (Advair Diskus) tiotropium bromide 2.5 2 inh inhalation QAM 02/16/20 07/22/23 History mcg/actuation mist for inhalation (Spiriva Respimat) valacyclovir 1 gram tablet 2,000 mg PO DIRECTED PRN Cold 02/16/20 07/22/23 History Sores prednisone 20 mg tablet 20 mg PO DIRECTED 07/22/23 07/22/23 History Past Med/Surg History Medical History (Updated 07/22/23 @ 16:36 by Munir Blanco MD) Asthma Surgical History S/P cholecystectomy S/P wrist surgery S/P shoulder surgery History of back surgery Family History Mother Cancer Father Congestive heart failure Denies family history of Ovarian cancer Prostate cancer Myocardial infarction Breast cancer Colorectal cancer Social History Smoking Status: Never smoker Second Hand Exposure: No; Do You Dip or Chew Tobacco: No; Hx Alcohol Use: Yes Alcohol type: wine Hx Substance Use: No Preferred Language: Tamazight Communication Ability: Effective Visual Impairment: No Limitations Hearing Ability: Normal Stain Applicator Required: No Beliefs That Will Affect Care: None marital status: Current Living Situation: Alone current occupational status: employed current occupation: teacher Other Information That Helps Us Care for You: No Feels Safe at Home: Yes Safety Concerns: Feels Safe At This Time Childhood Exposure to Second-Hand Smoke: Yes Dental Care, Regularly: Yes Physical Activity Frequency: 3-4 Times per Week Seatbelt Use: always Assistive Devices: Cane Review of Systems Review of Systems: All systems reviewed & are unremarkable except as noted in Subjective Physical Exam Constitutional: WD/WN, vitals as above ENMT: erythematous turbinates, cobblestoning in oropharynx Respiratory: normal respiratory effort, lungs clear to auscultation coarse cough on deep inhalation, but no rhonchi/crackles/wheezing appreciated Cardiovascular: RRR, no murmur, no edema Gastrointestinal (Abdomen): normal bowel sounds, soft, nontender, no hepatosplenomegaly Musculoskeletal: no cyanosis or clubbing, extremities motor strength 5/5 Results & Data Results & Data Vital Signs (Past 12 Hours) Vital Signs Temp Pulse Pulse Resp BP BP Pulse Ox 07/22/23 13:16 98 07/22/23 13:09 50 L 18 111/49 L 98 07/22/23 09:38 38.0 C H 75 20 131/67 98 O2 Del Method 07/22/23 13:16 Room Air 07/22/23 13:09 Room Air 07/22/23 09:38 Room Air Laboratory Results Short CBC 07/22/23 Range/Units 09:54 WBC 4.63 L (4.8-10.8) K/ul Hgb 14.7 (12.0-16.0) g/dl Hct 42.8 (37.0-47.0) % Plt Count 199 (130-400) K/uL BMP 07/22/23 09:54 Sodium 141 Potassium 3.2 L Chloride 105 Carbon Dioxide 26 BUN 20 Creatinine 0.75 Glucose 86 Calcium 8.9 Liver Function 07/22/23 Range/Units 09:54 Total Bilirubin 0.6 (0.2-1.0) mg/dl AST 18 (13-39) U/L ALT 18 (7-52) U/L Alkaline Phosphatase 48 (34-104) U/L Albumin 4.2 (3.4-5.0) gm/dl Urine 07/22/23 Range/Units Unknown Urine Color Yellow Urine Appearance Clear (Clear) Urine pH 6.0 (4.5-7.5) Ur Specific [place] 1.011 (1.000-1.030) Urine Protein Negative (Negative) Urine Glucose (UA) Negative (Negative) Diagnostic Findings Chest X-Ray 07/22/23 09:43 XR chest 1V not portable CLINICAL HISTORY: weakness TECHNIQUE: Single frontal radiograph of the chest was obtained. Comparison: Comparison is made to chest radiograph 07/15/2023 FINDINGS: Orthopedic hardware throughout the left scapula is unchanged. The cardiomediastinal silhouette is normal. The lungs are clear. No evidence of pleural effusion or pneumothorax. IMPRESSION: No acute chest disease. ACT 112: Negative or not required by law. Electronically signed by: Getachew Reed M.D. 07/22/2023 11:04 AM Lumbar Spine X-Ray 07/22/23 09:51 LUMBAR SPINE 5 VIEWS HISTORY: Fall. Low back pain. COMPARISON: Lumbar spine 04/26/2021. FINDINGS: Prior cholecystectomy. Posterior decompression and fusion from L4 through S1 with rods. The hardware is intact. No abnormal periprosthetic lucency. No fracture or subluxation within the lumbar spine. The visualized sacrum is intact. Mild disc space narrowing at L2-L3 and L3-L4, unchanged. Moderate facet degenerative changes again noted. IMPRESSION: No fracture or subluxation within the lumbar spine. ACT 112: Negative or not required by law. Electronically signed by: Camilo Stahl M.D. 07/22/2023 11:00 AM Pelvis X-Ray 07/22/23 09:51 XR pelvis 1-2V routine CLINICAL HISTORY: right sided pain, fall COMPARISON: Pelvis radiograph July 25, 2016. CT of the abdomen and pelvis February 16, 2020. FINDINGS: Postoperative findings within the lumbosacral spine are incidentally noted. Sacroiliac joints and symphysis pubis are intact. There is no acute fracture within the pelvis or hips. Mild joint space narrowing and osteophytosis of the right hip is present. No evidence for avascular necrosis of the femoral heads. IMPRESSION: 1. No fractures within the pelvis or hips. 2. Mild right hip osteoarthritis. ACT 112: Negative or not required by law. Electronically signed by: Quique Simons M.D. 07/22/2023 10:59 AM Medications Administered Home Medications Medication Instructions Recorded Confirmed Last Taken fexofenadine 180 mg tablet 180 mg PO DAILY PRN Allergic 12/31/18 07/22/23 01/10/22 (Yvonne Allergy) Symptoms montelukast 10 mg tablet 10 mg PO HS 12/31/18 07/22/23 01/11/22 albuterol sulfate 90 mcg/actuation 2 puff inhalation Q4H PRN Wheezing 06/03/19 07/22/23 01/11/22 aerosol inhaler #18 grams albuterol sulfate 2.5 mg/3 mL 2.5 mg (3 mL) inhalation Q4H PRN 06/28/19 07/22/23 01/11/22 (0.083 %) solution for nebulization Wheezing #90 mL fluticasone 500 mcg-salmeterol 50 1 inh inhalation AMHS 02/16/20 07/22/23 01/11/22 mcg/dose blistr powdr for inhalation (Advair Diskus) tiotropium bromide 2.5 2 inh inhalation QAM 02/16/20 07/22/23 01/11/22 mcg/actuation mist for inhalation (Spiriva Respimat) valacyclovir 1 gram tablet 2,000 mg PO DIRECTED PRN Cold 02/16/20 07/22/23 Unknown Sores prednisone 20 mg tablet 20 mg PO DIRECTED 07/22/23 07/22/23 Unknown Active Medications Generic Name Dose Route Start Last Admin Trade Name Freq PRN Reason Stop Dose Admin Enoxaparin Sodium 40 mg 07/22/23 17:00 07/22/23 16:22 Enoxaparin Inj 40 Mg/0.4 Ml Syr SQ 08/21/23 16:59 Not Given Q24H HERNANDEZ Fluticasone Propionate 2 sprays 07/22/23 14:45 07/22/23 18:17 Fluticasone Propionate Na Spr 16 Gm Btl NA 08/21/23 14:44 2 sprays DAILY HERNANDEZ Administration Guaifenesin 1,200 mg 07/22/23 13:25 07/22/23 13:59 Guaifenesin 600 Mg Tabcr PO 08/21/23 13:24 1,200 mg Q12 HERNANDEZ Administration Code Status & VTE Plan VTE Prophylaxis Plan VTE Prophylaxis will be ordered: Yes (2) Lower back pain Back pain laterality: right Chronicity: acute Sciatica presence: without sciatica Qualified Code(s): M54.50 - Low back pain, unspecified (3) Fall Encounter type: initial encounter Qualified Code(s): W19.XXXA - Unspecified fall, initial encounter
[2023-07-22] MEDS ORDERED: ALBUTEROL 0.083% NEBU SOLN 3 ML VIAL NEB PRN (14:36)
[2023-07-22] MEDS ORDERED: FEXOFENADINE HCL 180 MG TAB PO PRN (16:06)
[2023-07-22] MEDS ORDERED: POLYETHYLENE (MIRALAX) 17 GM PACK PO PRN (16:06)
[2023-07-22] MEDS ORDERED: ALBUTEROL HFA 8 GM INHALER INH PRN (16:06)
[2023-07-22] MEDS: ENOXAPARIN INJ 40 MG/0.4 ML SYR SQ SCH (16:22)
[2023-07-22] MEDS: FLUTICASONE PROPIONATE NA SPR 16 GM BTL SCH (18:17)
[2023-07-22] MEDS: ACETAMINOPHEN 325 MG TAB PO PRN (20:08)
[2023-07-22] MEDS: CYCLOBENZAPRINE HCL 10 MG TAB PO PRN (21:11)
[2023-07-22] MEDS: MONTELUKAST SODIUM 10 MG TABLET PO SCH (21:11)
[2023-07-22] MEDS: PSEUDOEPHEDRINE HCL 30 MG TAB PO SCH (21:12)
[2023-07-23] MEDS: CYCLOBENZAPRINE HCL 10 MG TAB PO PRN ×2 (06:39→20:14)
[2023-07-23] MEDS: ACETAMINOPHEN 325 MG TAB PO PRN (06:39)
[2023-07-23] MEDS: FLUTICASONE/VILANTEROL 200/25MCG 14 PUFFS/INHALER INH SCH (07:53)
[2023-07-23] MEDS: guaiFENesin 600 MG TABCR PO SCH ×2 (07:53→20:06)
[2023-07-23] MEDS: FEXOFENADINE HCL 180 MG TAB PO SCH (07:53)
[2023-07-23] MEDS: FLUTICASONE PROPIONATE NA SPR 16 GM BTL SCH (07:53)
[2023-07-23] MEDS: PSEUDOEPHEDRINE HCL 30 MG TAB PO SCH ×3 (07:54→20:06)
[2023-07-23 07:59] LABS: Hematocrit (blood only) 38.7 % (37.0-47.0); Hemoglobin 13.3 g/dl (12.0-16.0); Mean Corpuscular Hemoglobin 31.6 pg (25.0-34.0); Mean Corpuscular Hgb Conc 34.4 g/dL (32.0-36.0); Mean Corpuscular Volume 91.9 fL (80.0-100.0); Mean Platelet Volume 10.1 fL (9.4-12.4); Platelet Count 186 K/uL (130-400); RDW Standard Deviation 40.4 fL (36.4-46.3); Red Blood Count 4.21 M/uL (4.20-5.40); White Blood Count 3.84 K/ul (4.8-10.8)
[2023-07-23 08:16] LABS: Phosphorus 3.3 mg/dl (2.5-4.9)
[2023-07-23] MEDS: UMECLIDINIUM BROMIDE 62.5MCG/BLISTER 7 PUFFS/INHALER INH SCH (08:20)
--- NOTE | 2023-07-23 09:56 | Pulmonary Consultation ---
Date of Consultation July 23, 2023 Assessment & Plan (1) Influenza A: Continue symptomatic treatment as you are currently doing. She is out of the window for antiviral therapy at this point. Her symptoms are quite mild. (2) Asthma exacerbation: She was admitted for a mild to moderate asthma exacerbation. She notes that she is not very compliant with her maintenance steroid inhaler as she is often forgetful. She does note that she is somewhat hesitant to take medications, but willing to be more compliant now. She will need follow-up with outpatient pulmonology along with PFTs, NIOX and IgE level. Upon discharge, would recommend Trelegy 100 mcg to consolidate and simplify her asthma regimen. Agree with continuing Yvonne and Singulair on a daily basis. She would also benefit from alpha 1 antitrypsin deficiency screening as an outpatient. She is reluctant to start systemic corticosteroids as she has had significant side effects including changes in her mood and insomnia. I do not think she needs systemic corticosteroids at this time as she is not bronchospastic. She does have a mild bronchitis component which will resolve with time. I think she is safe to be dismissed from the hospital at this time. No further recommendations. Please call with questions. Thank you for the consult. History of Present Illness Reason for Consultation: Asthma exacerbation in the context of flu Attending Physician: Shelby Pederson MD History of Present Illness 62-year-old female with a longstanding history of asthma over the past 5 to 6 years who presented to the ER due to severe shortness of breath and cough. Patient notes that she has had some mild myalgias, low-grade fever and headache as well. She notes that for the past 2 to 3 weeks she has been feeling dyspneic with exertion. She describes that about a year ago she was followed by an manager ecommerce and classics teacher. She notes that she has a generic form of Advair at home but has not very compliant with her inhaler. She notes that she is forgetful to use her Advair and Singulair. She does note that she very frequently uses albuterol sometimes multiple times a day. She is feeling better today with less cough and congestion. She does not feel 100% herself as of yet. She notes that generally she is quite active, but lately she has been walking with a cane due to chronic back issues. She notes that she is taking prednisone at least twice in the past 6 months for asthma exacerbations. She notes that she is a lifelong non-smoker. She has used recreational marijuana in the past. She also notes that she has vape recreationally in the past, but not recently. She works as a health teacher in middle school. He has several cats and dogs at home. She does note some mild allergies to cats and dogs but has had animals for most of her life. Remission she was found to have influenza A. Admitting chest x-ray was personally reviewed which did not reveal any acute infiltrates. Her lung thomas are mildly hyperinflated. I reviewed a chest CTA from 2019 which did not reveal any significant emphysema or bronchiectasis. Allergies Allergy/AdvReac Type Severity Reaction Status Date / Time benzoin Allergy Unknown Unknown Verified 01/11/22 15:52 gabapentin Allergy Unknown Unknown Verified 01/11/22 15:52 Home Medications Medication Instructions Recorded Confirmed Type fexofenadine 180 mg tablet 180 mg PO DAILY PRN Allergic 12/31/18 07/22/23 History (Yvonne Allergy) Symptoms montelukast 10 mg tablet 10 mg PO HS 12/31/18 07/22/23 History albuterol sulfate 90 mcg/actuation 2 puff inhalation Q4H PRN Wheezing 06/03/19 07/22/23 Rx aerosol inhaler #18 grams albuterol sulfate 2.5 mg/3 mL 2.5 mg (3 mL) inhalation Q4H PRN 06/28/19 07/22/23 Rx (0.083 %) solution for nebulization Wheezing #90 mL fluticasone 500 mcg-salmeterol 50 1 inh inhalation AMHS 02/16/20 07/22/23 History mcg/dose blistr powdr for inhalation (Advair Diskus) tiotropium bromide 2.5 2 inh inhalation QAM 02/16/20 07/22/23 History mcg/actuation mist for inhalation (Spiriva Respimat) valacyclovir 1 gram tablet 2,000 mg PO DIRECTED PRN Cold 02/16/20 07/22/23 Hi story Sores prednisone 20 mg tablet 20 mg PO DIRECTED 07/22/23 07/22/23 History Patient History Medical History (Updated 07/22/23 @ 16:36 by Munir Blanco MD) Asthma Surgical History S/P cholecystectomy S/P wrist surgery S/P shoulder surgery History of back surgery Family History Mother Cancer Father Congestive heart failure Denies family history of Ovarian cancer Prostate cancer Myocardial infarction Breast cancer Colorectal cancer Social History Smoking Status: Never smoker Second Hand Exposure: No; Do You Dip or Chew Tobacco: No; Hx Alcohol Use: Yes Alcohol type: wine Hx Substance Use: No Preferred Language: Niuean Communication Ability: Effective Visual Impairment: No Limitations Hearing Ability: Normal Cooking Show Host Required: No Beliefs That Will Affect Care: None marital status: Current Living Situation: Alone current occupational status: employed current occupation: teacher Other Information That Helps Us Care for You: No Feels Safe at Home: Yes Safety Concerns: Feels Safe At This Time Childhood Exposure to Second-Hand Smoke: Yes Dental Care, Regularly: Yes Physical Activity Frequency: 3-4 Times per Week Seatbelt Use: always Assistive Devices: Cane Review of Systems Review of Systems: All systems reviewed & are unremarkable except as noted in HPI & below Physical Exam Physical Exam: Constitutional: Patient appears to be of their stated age. Patient is in no ap parent distress. Patient is well-developed. Eyes: Pupils are equal round and reactive to light. Conjunctivae are normal. Anicteric sclera. Ears nose, mouth and throat: Mallampati class 2. Normal posterior oropharynx. Uvula is midline. Neck: Trachea is midline. Visual inspection is normal. Respiratory: Clear to auscultation bilaterally. No use of accessory muscles. No significant clubbing noted. Cardiovascular: Regular rate and rhythm. No murmurs. No edema. Gastrointestinal: Normal bowel sounds, soft, nontender and nondistended. No hepatosplenomegaly noted. Musculoskeletal: No cyanosis. Patient is able to move all extremities. Strength is 5 out of 5 in the upper and lower extremities. Skin: No rashes, warm dry and intact. Neurologic: No obvious focal neurological deficits seen. Psychiatric: Alert and oriented x3 with a euthymic affect. Results & Data Results & Data Vital Signs (Past 12 Hours) Vital Signs Temp Pulse Resp BP Pulse Ox O2 Del Method 07/23/23 09:15 Room Air 07/23/23 08:31 36.8 C 65 16 113/72 96 Room Air 07/23/23 00:36 36.6 C 55 L 15 124/71 98 Room Air PG Care Time/CCT Total # of Minutes Spent Total Time Spent with Patient: Total time spent is greater than 50% in coordination of care (as documented) at patient's floor/unit and/or counseling patient: Coding Level of Care Code 82954 IN/OBS CONSULT LVL 4,60M Diagnoses Influenza A J10.1 Asthma exacerbation J45.901
--- NOTE | 2023-07-23 13:53 | Hospitalist Progress Note ---
Date of Service July 23, 2023 Assessment & Plan (1) Influenza A: (2) Lower back pain: (3) Fall: Plan 62 year old woman with history of COPD/asthma and allergic rhinitis, who presented to ED due to progressive weakness after being found to be Influenza A positive. Patient admitted given concerns of ongoing weakness/ambulatory dysfunction. There is no wheezing, nor does patient endorse symptoms consistent with exacerbation. Patient completed course of steroids without improvement and notes that she is subjectively better since being in the hospital, and without introduction of corticosteroids. Patient with multiple visits to PCP regarding "asthma exacerbations" but an eval by pulm to aid in inhaler regimen or further optimization given presenting symptoms and repeated steroid bursts as an outpatient is warranted. #Ambulatory dysfunction #Mechanical fall #Right SI joint discomfort -XRAY reviewed without acute fracture, no tenderness on palpation or symptoms reproducible on exam Continue tylenol, prn flexeril, lidocaine patch Patient did well with PT/OT #Influenza A infection #Viral sinusitis #Chronic allergic rhinitis #Mild asthma exacerbation Continue schedule Mucinex q12h, pseudoephedrine, fexofenadine Continue nebs prn Counseled patient on need for pulm follow up Continue supportive care Out of window for antiviral/tamiflu Conitnue Flutter valve Pulm recs noted. Plan to change patient's advair and spiriva to Trelegy on dc to aid adherence Continue montelukast DVT ppx: loveshaistax I spent a total of 50 minutes coordinating, documenting, and providing care for this patient excluding time spent in the performance of separately billed services. Admission and Anticipated Discharge Date Admission Date: July 22, 2023 Subjective Patient seen and examined Reports feeling better today Still feels weak Reports productive cough Reports back is much improved Denied nausea, vomiting, abd pain Denied chest pain or shortness of breath Physical Exam Constitutional: + well hydrated; no acute distress Eyes: PERRL, conjunctivae normal, anicteric sclerae ENMT: external ear and nose normal, oropharynx normal Respiratory: normal respiratory effort, lungs clear to auscultation Cardiovascular: Rate/Rhythm: regular rate and regular rhythm S1 S2 Gastrointestinal (Abdomen): normal bowel sounds, soft, nontender, no hepa tosplenomegaly Musculoskeletal: no cyanosis or clubbing, extremities motor strength 5/5 Neurologic: PERRL, EOMI, accommodation nl, no face palsy, no dysarthria Psychiatric: A+Ox3, euthymic affect Results & Data Results & Data Vital Signs (Past 12 Hours) Vital Signs Temp Pulse Resp BP Pulse Ox O2 Del Method 07/23/23 09:15 Room Air 07/23/23 08:31 36.8 C 65 16 113/72 96 Room Air Laboratory Results Abnormal lab results 07/23/23 Range/Units 07:21 WBC 3.84 L (4.8-10.8) K/ul (2) Lower back pain Back pain laterality: right Chronicity: acute Sciatica presence: without sciatica Qualified Code(s): M54.50 - Low back pain, unspecified (3) Fall Encounter type: initial encounter Qualified Code(s): W19.XXXA - Unspecified fall, initial encounter
[2023-07-23] MEDS: ENOXAPARIN INJ 40 MG/0.4 ML SYR SQ SCH (16:09)
[2023-07-23 17:15] LABS: BUN Creatinine Ratio 23.4 (10-20); Calcium 9.1 mg/dl (8.6-10.3); Creatinine Clr Calc Pharmacy 72.7 ml/min; Est GFR (African American) 97.3 ml/min; Est GFR (Non-African American) 83.9 ml/min; Potassium 3.5 mmol/L (3.5-5.1)
[2023-07-23] MEDS: MONTELUKAST SODIUM 10 MG TABLET PO SCH (20:06)
[2023-07-24] MEDS: FLUTICASONE/VILANTEROL 200/25MCG 14 PUFFS/INHALER INH SCH (08:20)
[2023-07-24] MEDS: FEXOFENADINE HCL 180 MG TAB PO SCH (08:21)
[2023-07-24] MEDS: PSEUDOEPHEDRINE HCL 30 MG TAB PO SCH (08:21)
[2023-07-24] MEDS: FLUTICASONE PROPIONATE NA SPR 16 GM BTL SCH (08:21)
[2023-07-24] MEDS: UMECLIDINIUM BROMIDE 62.5MCG/BLISTER 7 PUFFS/INHALER INH SCH (08:21)
[2023-07-24] MEDS: guaiFENesin 600 MG TABCR PO SCH (08:21)
[2023-07-24 09:33] LABS: Hematocrit (blood only) 43.8 % (37.0-47.0); Hemoglobin 15.3 g/dl (12.0-16.0); Mean Corpuscular Hemoglobin 31.1 pg (25.0-34.0); Mean Corpuscular Hgb Conc 34.9 g/dL (32.0-36.0); Mean Platelet Volume 10.3 fL (9.4-12.4); Platelet Count 290 K/uL (130-400); RDW Coefficient of Variation 11.9 % (11.5-14.5); Red Blood Count 4.92 M/uL (4.20-5.40)
[2023-07-24 09:52] LABS: BUN Creatinine Ratio 24.7 (10-20); Calcium 9.2 mg/dl (8.6-10.3); Creatinine Clr Calc Pharmacy 76.7 ml/min; Est GFR (African American) 103.8 ml/min; Est GFR (Non-African American) 89.5 ml/min; Magnesium 2.1 mg/dl (1.7-2.4); Phosphorus 3.3 mg/dl (2.5-4.9); Potassium 3.2 mmol/L (3.5-5.1)
--- NOTE | 2023-07-24 10:54 | Discharge Summary ---
Discharge Summary Date of Service July 24, 2023 Notes For Next Care Provider asthma exacerbation 2/2 flu A Medication Changes From Visit Changed advair and spiriva to Trelegy as a single agent Admission HPI Per Admitting Provider Ms. Keon Valencia is a 62 year old woman with history of COPD/asthma and allergic rhinitis, who presented to ED due to progressive weakness after being found to be Influenza A positive. Patient states that she just completed a course of steroids yesterday and states she just feels weak overall. She reports coughing spells, but denies any wheezing or chest tightness consistent with prior exacerbations. She notes she has not followed up in "years" with pulmonary and no longer takes spiriva. She also notes that she has not been compliant with her inhalers for over a week given how weak she has felt. She endorses subjective fevers and occasional productive cough. Patient states she has relied on her albuterol nebulizers which have offered substantial relief, as well as occasional Advil. She notes the advil is due to a mechanical fall she sustained a "few days ago". She has since felt as if there was a "spasm" in her lower right back that is worse with standing straight upright. In ED, vital signs notable for SBP in 110s-130, saturating well on room air, TMAX 38 C. CXR reviewed without consolidation Imaging of pelvis negative for acute fracture Labs notable for low potassium to 3.2 and influenza A (+ 07/15 and 07/22) Potassium replaced PO in ED, Neb given, 2 L IVF Admission Exam Per Admitting Provider Constitutional: WD/WN, vitals as above ENMT: erythematous turbinates, cobblestoning in oropharynx Respiratory: normal respiratory effort, lungs clear to auscultation coarse cough on deep inhalation, but no rhonchi/crackles/wheezing appreciated Cardiovascular: RRR, no murmur, no edema Gastrointestinal (Abdomen): normal bowel sounds, soft, nontender, no hepatosplenomegaly Musculoskeletal: no cyanosis or clubbing, extremities motor strength 5/5 Principal Dx & Hospital Course #1 = Principal Diagnosis (1) Influenza A: (2) Lower back pain: (3) Fall: Plan This is a 62 year old woman with history of COPD/asthma and allergic rhinitis, who presented to ED due to progressive weakness in setting of Influenza A positive and asthma exacerbation. Out of the time window for antiviral/tamiflu. She declined steroid therapy. She improved with supportive care. She was evaluated by [facility] [employer] inpatient. Her Advair and Spiriva were changed to Trelegy on discharge to aid in medication adherence Recommend alpha 1 antitrypsin deficiency screening and pulmonology follow up as an outpatient. PT/OT evaluation with recommendation for return home. Patient feels better today She is stable at time of discharge home. Discharge Exam Gen: WD/WN, NAD, sitting up in bed, A&Ox3 HEENT: Normocephalic, atraumatic, conjunctivae moist, sclerae anicteric, mucous membranes moist Lung: Clear to Auscultation bilaterally, no wheezes/rales/rhonchi Heart: Regular rate, regular rhythm, no murmurs, rubs, or gallops Abdomen: Soft, NT, ND +BS x 4 Extremities: no edema Skin: Warm, no rash Updated Medication List Medication Instructions Recorded Confirmed Type fexofenadine 180 mg tablet 180 mg PO DAILY PRN Allergic 12/31/18 07/22/23 History (Yvonne Allergy) Symptoms montelukast 10 mg tablet 10 mg PO HS 12/31/18 07/22/23 History albuterol sulfate 90 mcg/actuation 2 puff inhalation Q4H PRN Wheezing 06/03/19 07/22/23 Rx aerosol inhaler #18 grams albuterol sulfate 2.5 mg/3 mL 2.5 mg (3 mL) inhalation Q4H PRN 06/28/19 07/22/23 Rx (0.083 %) solution for nebulization Wheezing #90 mL valacyclovir 1 gram tablet 2,000 mg PO DIRECTED PRN Cold 02/16/20 07/22/23 History Sores prednisone 20 mg tablet 20 mg PO DIRECTED 07/22/23 07/22/23 History fluticasone fur. 100 mcg-umeclid 1 inh inhalation DAILY #60 ea 07/24/23 Rx 62.5 mcg-vilant 25 mcg inhalat.powder (Trelegy Ellipta) Hospital Stay Data Consultations 07/22/23 12:41 ED Decision to Admit Stat 07/22/23 18:26 Consult Pulmonology Routine Pending Results Patient Have Any Pending Studies at Discharge: No Discharge Instructions Given to Patient (Per Discharging Provider) Mrs Valencia. You came to the hospital with cough, shortness of breath and weakness. You were managed for the above listed diagnoses. Your inhalers (Advair and Spiriva) were changed to Trelegy to make it easier to take. Continue your montelukast. Please ensure follow up with Pulmonology. It was a pleasure taking care of you. Total Time Total Time Spent Total Time Spent (In Minutes): 40 Supervising Physician Co-Signing Physician Notes Patient seen and examined Agree with findings and plans as detailed by Catherine See PA-C
--- NOTE | 2023-07-24 18:47 | Electrocardiogram Report ---
Test Reason : Blood Pressure : / mmHG Vent. Rate : 061 BPM Atrial Rate : 061 BPM P-R Int : 224 ms QRS Dur : 076 ms QT Int : 412 ms P-R-T Axes : 072 058 067 degrees QTc Int : 414 ms Sinus rhythm with 1st degree A-V block Possible Left atrial enlargement Septal infarct (cited on or before 22-JUL-2023) Abnormal ECG When compared with ECG of 11-JAN-2022 15:10, No significant change was found Confirmed by Ronak Arechiga ([id number]) on 07/24/2023 6:46:49 PM Referred By: REFERRED SELF Confirmed By:Ronak Arechiga
== END 2023-07-24 14:57 | disposition home or self-care (01) | DRG 194 ==
LOC: ED 09:31 → SUATTDRO 14:23 → 3W 14:23

== ENCOUNTER 2025-04-28 14:48 | Observation (INO) ==
[2025-04-28 18:54] LABS: Hematocrit (blood only) 40.8 % (37.0-47.0); Hemoglobin 13.6 g/dl (12.0-16.0); Immature Granulocytes # (auto) 0.03 K/uL (0.01-0.20); Immature Granulocytes % (auto) 0.3 %; Mean Corpuscular Hemoglobin 31.8 pg (25.0-34.0); Mean Corpuscular Volume 95.3 fL (80.0-100.0); Platelet Count 288 K/uL (130-400); RDW Standard Deviation 48.5 fL (36.4-46.3); Red Blood Count 4.28 M/uL (4.20-5.40); White Blood Count 8.82 K/ul (4.8-10.8)
--- NOTE | 2025-04-28 19:02 | Emergency Department Note ---
Impression & Plan Shortness of breath, Asthma exacerbation, Pericardial effusion ED Provider Note CHIEF COMPLAINT: Trouble breathing HISTORY OF PRESENTING ILLNESS: This 64-year-old female patient presents to the emergency department for evaluation of trouble breathing and a possible asthma exacerbation. The patient states that she feels like there is an elephant on her chest and she is short of breath. She states that anytime she tries to talk, she will cough. The patient called her PCP who advised her to come to the ER. She has been in an asthma exacerbation for the past 6 weeks and has been using her rescue medications without improvement. She completed a course of antibiotics and is also about finished with her course of steroids. She was switched to a new inhaler yesterday without improvement. She denies any fevers. She has also been having some abdominal pain the past couple days. Denies reflux symptoms. No nausea or vomiting. REVIEW OF SYSTEMS: See HPI for pertinent positives and pertinent negatives. ALLERGIES: Nickel, Benzoin, Gabapentin MEDICATIONS: See below PAST MEDICAL HISTORY: See below PHYSICAL EXAM: Vital Signs: Vitals are noted on the nurse's note and reviewed by myself. GENERAL: Non toxic in appearance and in no acute distress. SKIN: Capillary reflex less than 2 seconds. HEAD: Normocephalic, atraumatic. EARS: Bilateral external auditory canals clear without tragus tenderness. Bilateral tympanic membranes pearly henriquez without erythema or effusion. No mastoid tenderness bilaterally. EYES: Pupils equal round and reactive to light and accommodation. Conjunctivae without injection, sclerae without icterus. Extraocular movements intact. NOSE: Patent, turbinates inflamed with no discharge. No sinus tenderness. MOUTH: Mucous membranes moist. Airway patent, uvula midline. Pharynx is not erythematous and not edematous without exudate. Pharynx without postnasal drip. No evidence for peritonsillar abscess. NECK: Supple without nuchal rigidity. No lymphadenopathy. HEART: Regular rate and rhythm without murmurs gallops or rubs. LUNGS: Clear to auscultation bilaterally without wheezes, rales or rhonchi. No accessory muscle use or retractions. ABDOMEN: Positive bowel sounds x 4. Normal tympanic percussion. Soft, nontender to palpation. No masses or hepatosplenomegaly. No guarding, rigidity, or rebound tenderness. No CVA tenderness. No focal RLQ or LLQ tenderness. NEURO: Patient was alert and oriented. DIFFERENTIAL DIAGNOSIS: Differential diagnosis includes URI, bronchitis, pneumonia, pneumothorax, hemothorax, PE, ME, pericarditis, myocarditis, airway obstruction, aspiration, pulmonary edema, asthma, COPD, CHF, pleurisy, metabolic acidosis, anemia, neoplasm, or others. ED COURSE AND MEDICAL DECISION MAKING: MEDICATIONS GIVEN: 500 mL liter normal saline solution bolus. Pepcid 20 mg IV. MONITOR: Continuous glacing machine tender: Order was placed for continuous glacing machine tender. Patient was placed on the glacing machine tender and continuous pulse ox. Patient was noted to be in normal sinus rhythm at an initial rate of 80 bpm per my interpretation. EKG: EKG was interpreted by myself as sinus rhythm at 64 bpm with no acute ST or T wave changes and no significant change from her previous EKG. INTERPRETATION OF LABS: I interpreted the labs with full lab results as below in the lab section of this note. Laboratory results pertinent to the emergent complaint are discussed in the MDM section below. The patient was advised to follow up with their PCP and/or specialist(s) for further outpatient monitoring and management of any abnormal results. INTERPRETATION OF IMAGING: Imaging studies were interpreted by myself and read by radiology as per the imaging section of this note. The patient was advised to follow up with their PCP and/or specialist(s) for further outpatient management of any non-emergent abnormal findings. Chest x-ray shows mild bibasilar atelectasis or scar. CTA of the chest with IV contrast shows no evidence for PE or acute thromboembolic disease. No evidence for pneumonia, pneumothorax, or hemothorax. There is a prominent heart size as well as a small pericardial effusion. CT scan of the abdomen and pelvis with IV contrast shows nonspecific segmental wall thickening and somewhat jejunal fold transformation of the distal small bowel. Suspect inflammatory process. No discrete mass or obstruction. Small bowel follow-through would be helpful for further characterization. Prominent gas distended and to a lesser extent stool-filled large bowel. No obstruction or acute process at this level. No additional findings of concern. CHRONIC MEDICAL/SOCIAL CONDITIONS AFFECTING CARE: Asthma CONSULTATIONS: On-call hospitalist MDM SUMMARY: The patient was seen during a time of extreme volume and extreme acuity. Nursing triage protocols were initiated with IV lock, labs, and/or imaging studies conducted by protocol in the triage area. The patient was initially evaluated in a triage room and then re-evaluated once they were taken back to an exam room. The patient has been dealing with shortness of breath and an asthma exacerbation for the past 6 weeks. No improvement after antibiotics and a course of steroids as an outpatient. She now coughs every time she tries to talk and feels like there is an elephant sitting on her chest from the shortness of breath, but denies specific cardiac chest pain. The patient has also had abdominal pain for the past couple of days. The patient was given IV fluids and IV Pepcid. She declined any medication for pain otherwise while in the ER. The patient's lungs were clear on exam without wheezing so nebulizer treatments were held at this time. White blood cell count normal at 8.82. Hemoglobin normal at 13.6. Platelet count normal at 288. Coags were normal. CMP normal. Magnesium normal. High-sensitivity troponin x 2 normal. Respiratory BioFire positive for rhinovirus/enterovirus. Chest x-ray shows mild bibasilar atelectasis or scar. CTA of the chest with IV contrast shows no evidence for PE or acute thromboembolic disease. No evidence for pneumonia, pneumothorax, or hemothorax. There is a prominent heart size as well as a small pericardial effusion. CT scan of the abdomen and pelvis with IV contrast shows nonspecific segmental wall thickening and somewhat jejunal fold transformation of the distal small bowel. Suspect inflammatory process. No discrete mass or obstruction. Small bowel follow-through would be helpful for further characterization. Prominent gas distended and to a lesser extent stool- filled large bowel. No obstruction or acute process at this level. No additional findings of concern. Given the patient's persistent and worsening shortness of breath over the past 6 weeks despite outpatient antibiotics and steroids along with the pericardial effusion seen on CT scan, it is felt the patient would benefit from admission for further evaluation and treatment. I spoke with the on-call hospitalist who agreed to admit the patient for further evaluation and treatment. Please refer to their dictation for further details. The patient's care was transferred in stable condition. DIAGNOSIS: Shortness of breath Asthma exacerbation Pericardial effusion Past Med/Surg History Problem List (Updated 04/29/25 @ 17:16 by Marija Israel PA-C) Shortness of breath (Acute) Rhinovirus infection Pericardial effusion (Acute) Thickened small bowel Constipation Chronic abdominal pain Asthma exacerbation (Acute) Allergic rhinitis due to mold Allergic rhinitis due to dust mite Allergic rhinitis due to animals Allergic rhinitis due to pollen Severe persistent asthma Cervical radiculopathy Lumbar radiculopathy Neck pain Arthralgia Lumbar post-laminectomy syndrome Allergic rhinitis (Chronic) MONA (generalized anxiety disorder) (Chronic) Vitamin D deficiency (Chronic) Medical History History of COVID-19 (~2021) denies hospitalization-symptoms resolved History of postoperative nausea and vomiting denies needing scop patch History of colon polyps Osteoarthritis MONA (generalized anxiety disorder) Asthma currently well controlled/use albuterol 1-2 x per month.no recent flares. Surgical History History of lumpectomy of left breast History of shoulder surgery x3 left History of surgery on left wrist hardware History of laparoscopic cholecystectomy and hernia repair using mesh. History of endoscopy History of colonoscopy History of back surgery x 3 Family History Mother Cancer Father Congestive heart failure Denies family history of Ovarian cancer Prostate cancer Myocardial infarction Breast cancer Colorectal cancer Social History Smoking Status: Never smoker Second Hand Exposure: No; Do You Dip or Chew Tobacco: No; Hx Alcohol Use: No Hx Substance Use: No Preferred Language: Bangladeshi Communication Ability: Effective Visual Impairment: No Limitations Hearing Ability: Normal Dye Colorist Formulator Required: No Beliefs That Will Affect Care: None marital status: Current Living Situation: Alone current occupational status: employed current occupation: teacher Other Information That Helps Us Care for You: No Feels Safe at Home: Yes Safety Concerns: Feels Safe At This Time Childhood Exposure to Second-Hand Smoke: Yes Dental Care, Regularly: Yes Physical Activity Frequency: 3-4 Times per Week Seatbelt Use: always Assistive Devices: None Allergies Allergies Allergy/AdvReac Type Severity Reaction Status Date / Time nickel Allergy Mild red, burny Verified 04/19/25 08:39 , rash type reaction benzoin Allergy Unknown Rash Verified 04/19/25 08:39 gabapentin Allergy Unknown Rash Verified 04/19/25 08:39 Home Meds Home Medications Medication Instructions Recorded Confirmed albuterol sulfate 90 mcg/actuation 2 inh inhalation Q4H PRN Shortness 04/28/25 04/28/25 aerosol inhaler Of Breath Or Wheezing fluticasone fur. 200 mcg-umeclid 1 inh inhalation DAILY 04/28/25 04/28/25 62.5 mcg-vilant 25 mcg inhalat.powder (Trelegy Ellipta) levocetirizine 5 mg tablet 5 mg PO DAILY 04/28/25 04/28/25 montelukast 10 mg tablet 10 mg PO DAILY 04/28/25 04/28/25 prednisone 10 mg tablet 10 mg PO DAILY 04/28/25 04/28/25 Results & Data (ED) Vital Signs Vital Signs - 24 hr 04/28/25 19:47 04/28/25 19:48 04/28/25 19:48 Temperature Temperature Source Pulse Rate 62 Pulse Rate [Apical] 72 Respiratory Rate 18 Respiratory Effort / Characteristics Respiratory Depth Respiratory Pattern Blood Pressure [Left Arm] 141/75 H Blood Pressure Mean [Left Arm] 97 Pulse Oximetry 98 Oxygen Delivery Method Room Air Room Air 04/28/25 21:00 04/28/25 23:00 Temperature 36.6 C Temperature Source Oral Pulse Rate Pulse Rate [Apical] 60 60 Respiratory Rate 18 16 Respiratory Effort / Characteristics Non-Labored Spontaneous Respiratory Depth Normal Respiratory Pattern Regular Blood Pressure [Left Arm] 152/81 H 114/67 Blood Pressure Mean [Left Arm] 104 82 Pulse Oximetry 98 98 Oxygen Delivery Method Room Air Room Air Laboratory Data 04/29/25 05:47 04/29/25 05:47 Lab Results 04/28/25 Range/Units 18:32 WBC 8.82 (4.8-10.8) K/ul RBC 4.28 (4.20-5.40) M/uL Hgb 13.6 (12.0-16.0) g/dl Hct 40.8 (37.0-47.0) % MCV 95.3 (80.0-100.0) fL MCH 31.8 (25.0-34.0) pg MCHC 33.3 (32.0-36.0) g/dL RDW Std Deviation 48.5 H (36.4-46.3) fL RDW Coeff of Catarino 13.7 (11.5-14.5) % Plt Count 288 (130-400) K/uL MPV 9.8 (9.4-12.4) fL Immature Gran % (Auto) 0.3 % Neut % (Auto) 72.9 % Lymph % (Auto) 20.4 % [place] % (Auto) 5.4 % Eos % (Auto) 0.7 % Baso % (Auto) 0.3 % Neut # (Auto) 6.42 (1.40-6.50) K/uL Lymph # (Auto) 1.80 (1.20-3.40) K/uL [place] # (Auto) 0.48 (0.11-0.59) K/uL Eos # (Auto) 0.06 (0.00-0.50) K/uL Baso # (Auto) 0.03 (0.00-0.20) K/uL Immature Gran # (Auto) 0.03 (0.01-0.20) K/uL PT 10.6 (9.0-12.0) Seconds INR 1.0 (0.9-1.1) APTT 25 (21-31) Seconds PTT Ratio 0.9 Sodium 142 (136-145) mmol/L Potassium 3.8 (3.5-5.1) mmol/L Chloride 105 (98-107) mmol/L Carbon Dioxide 27 (21-32) mmol/L Anion Gap 10 (3-11) BUN 12 (6-23) mg/dl Creatinine 0.68 (0.6-1.2) mg/dl Est Cr Clr Drug Dosing 80.3 ml/min eGFR 98.41 BUN/Creatinine Ratio 17.6 (10-20) Glucose 85 (70-99(Fasting)) mg/dl Calcium 9.7 (8.6-10.3) mg/dl Magnesium 2.2 (1.7-2.4) mg/dl Total Bilirubin 0.8 (0.2-1.0) mg/dl AST 29 (13-39) U/L ALT 34 (7-52) U/L Alkaline Phosphatase 54 (34-104) U/L Troponin I High Sens 6.9 (0-14) pg/ml Total Protein 7.7 (6.0-8.3) gm/dl Albumin 4.7 (3.4-5.0) gm/dl Globulin 3.0 (2.5-4.0) gm/dl Albumin/Globulin Ratio 1.6 (0.9-2) Adenovirus (PCR) Not Detected (NotDetected) B. pertussis DNA (PCR) Not Detected (NotDetected) B.parapertussis DNA PCR Not Detected (NotDetected) C. pneumoniae DNA (PCR) Not Detected (NotDetected) Coronavirus OC43 (PCR) Not Detected (NotDetected) Coronavirus HKU1 (PCR) Not Detected (NotDetected) Coronavirus 229E (PCR) Not Detected (NotDetected) SARS-CoV-2 (PCR) Not Detected (NotDetected) Coronavirus NL63 (PCR) Not Detected (NotDetected) Human Metapneumovir PCR Not Detected (NotDetected) Influenza Type A (PCR) Not Detected (NotDetected) Influenza Type B (PCR) Not Detected (NotDetected) M. pneumoniae (PCR) Not Detected (NotDetected) Parainfluenza 1 (PCR) Not Detected (NotDetected) Parainfluenza 2 (PCR) Not Detected (NotDetected) Parainfluenza 3 (PCR) Not Detected (NotDetected) Parainfluenza 4 (PCR) Not Detected (NotDetected) RSV (PCR) Not Detected (NotDetected) Entero/Rhino (PCR) DETECTED A (NotDetected) Administered Medications Azithromycin (Azithromycin 250 Mg Tab) 500 mg PO QAM [facility] Stop: 05/02/25 13:14 Last Admin: 04/29/25 15:34 Dose: 500 mg Documented By: [facility] Budesonide (Budesonide 0.5 Mg/2 Ml Vial (Pulmicort)) 0.5 mg NEB BIDR HERNANDEZ Stop: 05/29/25 08:19 Last Admin: 04/29/25 08:32 Dose: 0.5 mg Documented By: INNA Cetirizine HCl (Cetirizine Hcl 10 Mg Tablet) 10 mg PO DAILY HERNANDEZ Stop: 05/29/25 08:59 Last Admin: 04/29/25 10:55 Dose: 10 mg Documented By: [facility] Enoxaparin Sodium (Enoxaparin Inj 40 Mg/0.4 Ml Syr) 40 mg SQ Q24H HERNADNEZ Stop: 05/29/25 08:59 Last Admin: 04/29/25 10:55 Dose: 40 mg Documented By: KAILEY Formoterol Fumarate (Formoterol 20 Mcg/2 Ml Vial) 20 mcg NEB BIDR HERNANDEZ Stop: 05/29/25 08:19 Last Admin: 04/29/25 08:32 Dose: 20 mcg Documented By: INNA Methylprednisolone 40 mg/ (Syringe) 0.64 mls @ 1.5 mls/min IV TID HERNANDEZ Stop: 05/29/25 08:59 Last Admin: 04/29/25 15:35 Dose: 1.5 mls/min Documented By: Admin: 04/29/25 10:56 Dose: 1.5 mls/min Documented By: KAILEY Levalbuterol HCl (Levalbuterol 1.25 Mg/3 Ml Neb) 1.25 mg NEB QIDR HERNANDEZ Stop: 05/29/25 06:59 Last Admin: 04/29/25 15:17 Dose: 1.25 mg Documented By: Admin: 04/29/25 11:22 Dose: 1.25 mg Documented By: Admin: 04/29/25 07:54 Dose: 1.25 mg Documented By: NATALIA Melatonin (Melatonin 3 Mg Tab) 3 mg PO HS PRN PRN Reason: Sleep Stop: 05/29/25 02:42 Last Admin: 04/29/25 02:54 Dose: 3 mg Documented By: LORRIE Montelukast Sodium (Montelukast Sodium 10 Mg Tablet) 10 mg PO DAILY [facility] Stop: 05/29/25 08:59 Last Admin: 04/29/25 10:55 Dose: 10 mg Documented By: KAILEY Discontinued Medications Famotidine (Pepcid 20mg Iv Push) 20 mg in 5 mls @ 2.5 mls/min IV NOW STA Stop: 04/28/25 19:08 Last Admin: 04/28/25 19:42 Dose: 2.5 mls/min Documented By: VERNON Sodium Chloride (Nss) 500 mls @ 999 mls/hr IV .Q31M ONE Stop: 04/28/25 19:37 Last Infusion: 04/28/25 20:13 Dose: Infused Documented By: Admin: 04/28/25 19:42 Dose: 999 mls/hr Documented By: VERNON Ioversol (Optiray 320 125ml) 119 ml IV ONCE ONE Stop: 04/28/25 19:35 Last Admin: 04/28/25 19:34 Dose: 119 ml Documented By: DAXA Methylprednisolone (Methylprednisolone 125 Mg/2 Ml Vial) 40 mg IV NOW ONE Stop: 04/29/25 01:13 Last Admin: 04/29/25 02:44 Dose: 40 mg Documented By: [facility] Imaging Data Radiologist's Impression: Chest X-Ray 04/28/25 15:30 Technique: A frontal view of the chest was obtained Findings: There are no confluent pulmonary infiltrates. The heart size is within normal limits. No pleural effusion or pneumothorax is seen. There is mild linear atelectasis or scar in the lung bases. There is internal fixation of the left glenoid. There is mild scoliosis Impression: Mild bibasilar atelectasis or scar Electronically signed by Neo Lezama 04-28-2025 7:55 PM Abdomen/Pelvis CT 04/28/25 19:07 EXAMINATION: CT of the abdomen and pelvis performed after the administration of IV contrast. TECHNIQUE: Helical CT images from the lung bases through the symphysis pubis were obtained with contrast. Coronal and sagittal reformatted images were generated at a workstation for further assessment. Dose reduction techniques were achieved by using automatic exposure control and/or adjustment of mA and/or kV according to patient size and/or use of iterative reconstruction technique. HISTORY: Abdominal pain. COMPARISON: April 27, 2024 study report not available at the time of dictation. FINDINGS: Maintenance Electrician film demonstrates surgical clips right upper abdomen. Lumbosacral fusion hardware. Right hip arthroplasty changes. Lung windows demonstrate minimal bibasilar subsegmental atelectasis and/or scarring. Soft tissue windows demonstrate cholecystectomy changes. 1 cm hypodensity anterior inferior left liver lobe. Hounsfield units measure simple fluid. This likely represents a benign cyst. Similar smaller focus right liver lobe. Prominent pancreatic duct. Pancreas is otherwise within normal limits. Portions of the exam limited secondary to streak artifact from right hip arthroplasty hardware. Uterus and adnexa are within normal limits. Prominent gas distended and to lesser extent stool-filled large bowel. No mechanical obstruction. No mass. Appendix is within normal limits. Prominent air and fluid distended loops of lower abdomen small bowel. Additional prominent distal small bowel wall thickness and prominent folds. Element of absent normal distal ileum with similar jejunal morphology. This is not present on prior exam. No appreciated mass or obstruction. Remaining solid and hollow organs of the abdomen and pelvis are within normal limits. No free air or free fluid. Lumbosacral fusion changes and laminectomies. Bone windows demonstrate lumbosacral posterior fusion hardware and interbody grafts. Orthopedic hardware appears to be intact without appreciated loosening. No appreciated acute osseous process. IMPRESSION: 1. Nonspecific segmental wall thickening and somewhat jejunal fold transformation of the distal small bowel. Suspect inflammatory process. No discrete mass. No obstruction. Small bowel follow-through would be helpful for further characterization. 2. Prominent gas distended and to a lesser extent stool-filled large bowel. No mechanical obstruction or acute process at this level. This is nonspecific. No additional findings to indicate source of patient's symptoms. Please see above for details. Electronically signed by Jozef Farrell 04-28-2025 9:11 PM Chest CTA 04/28/25 19:07 CT pulmonary angiogram with IV contrast. History: Abdominal pain. Dyspnea. COMPARISON: December 15, 2018. Study report not available at the time of dictation. TECHNIQUE: CT angiography of the chest was performed without IV contrast followed by IV contrast, including 3D post processing CTA image reconstruction. FINDINGS: Maintenance Electrician film demonstrates sideplate and screws left scapula. Lumbosacral fusion hardware. Right hip arthroplasty changes. Lung windows demonstrate linear band densities bilateral lower lobes and lingula. This likely represents subsegmental atelectasis. Soft tissue windows demonstrate normal variant origin left vertebral artery off the thoracic aorta. Thoracic aorta although limited due to bolus timing demonstrates normal course and caliber without dissection. Heart size is prominent. Small pericardial effusion. No appreciated coronary artery calcifications. No pleural effusions. Pulmonary artery opacification is of moderate diagnostic quality. No pulmonary artery filling defects. No appreciated lymphadenopathy. Included upper abdomen is within normal limits. Bone windows demonstrate sideplate and screws left scapula. Orthopedic hardware appears to be well-seated without failure. No appreciated acute osseous process. IMPRESSION: 1. No pulmonary embolism or secondary findings to indicate acute thromboembolic disease. 2. Otherwise no findings to indicate source of patient's symptoms. Please see above for details. Electronically signed by Jozef Farrell 04-28-2025 8:58 PM Discharge Plan Visit Data Chief Complaint: Respiratory Problems Stated Complaint: ASTHMA EXACERBATION, TROUBLE BREATHING ED Provider: Kojo Zaman ED Midlevel Provider: Marija Israel Discharge Problem: Shortness of breath, Asthma exacerbation, Pericardial effusion Patient Disposition: Admitted As Inpatient Condition: Fair Discharge Instructions Interventions: ED Discharge Assessment Last Done: 04/29/25 00:10
[2025-04-28 19:12] LABS: Alanine Aminotransferase 34.0 U/L (7-52); Albumin Globulin Ratio 1.6 (0.9-2); Albumin Level 4.7 gm/dl (3.4-5.0); Alkaline Phosphatase 54.0 U/L (34-104); Anion Gap 10.0 (3-11); Bilirubin,Total 0.8 mg/dl (0.2-1.0); Blood Urea Nitrogen 12.0 mg/dl (6-23); Calcium 9.7 mg/dl (8.6-10.3); Carbon Dioxide 27.0 mmol/L (21-32); Chloride 105.0 mmol/L (98-107); Creatinine Clr Calc Pharmacy 80.3 ml/min; Globulin 3.0 gm/dl (2.5-4.0); Glucose 85.0 mg/dl (70-99(Fasting)); Potassium 3.8 mmol/L (3.5-5.1); Sodium 142.0 mmol/L (136-145); Total Protein 7.7 gm/dl (6.0-8.3)
[2025-04-28 19:21] LABS: INR 1.0 (0.9-1.1); Partial Thromboplastin Time 25 Seconds (21-31); Prothrombin Time 10.6 Seconds (9.0-12.0)
[2025-04-28 19:33] LABS: Magnesium 2.2 mg/dl (1.7-2.4)
[2025-04-28] MEDS: OPTIRAY 320 125ml IV ONE (19:34)
[2025-04-28 19:39] LABS: Chlamydia pneumoniae PCR Not Detected (NotDetected); Coronavirus 229E PCR Not Detected (NotDetected); Coronavirus CoV-2 (COVID19)PCR Not Detected (NotDetected); Coronavirus HKU1 PCR Not Detected (NotDetected); Coronavirus NL63 PCR Not Detected (NotDetected); Coronavirus OC43PCR Not Detected (NotDetected); Human Metapneumovirus PCR Not Detected (NotDetected); Parainfluenza Virus 1 PCR Not Detected (NotDetected); Parainfluenza Virus 2 PCR Not Detected (NotDetected); Parainfluenza Virus 3 PCR Not Detected (NotDetected); Parainfluenza Virus 4 PCR Not Detected (NotDetected); Respiratory Syncytial VirusPCR Not Detected (NotDetected); Rhinovirus/Enterovirus PCR DETECTED (NotDetected)
[2025-04-28] MEDS: FAMOTIDINE 20MG IV PUSH 20 MG/5 ML SYR IV STA (19:42)
[2025-04-28] MEDS: SODIUM CHLORIDE 0.9% 500 ML IV ONE (19:42)
--- NOTE | 2025-04-28 19:57 | XRay Report ---
Technique: A frontal view of the chest was obtained Findings: There are no confluent pulmonary infiltrates. The heart size is within normal limits. No pleural effusion or pneumothorax is seen. There is mild linear atelectasis or scar in the lung bases. There is internal fixation of the left glenoid. There is mild scoliosis Impression: Mild bibasilar atelectasis or scar Electronically signed by Neo Lezama 04-28-2025 7:55 PM
--- NOTE | 2025-04-28 20:59 | CT Scan Report ---
CT pulmonary angiogram with IV contrast. History: Abdominal pain. Dyspnea. COMPARISON: December 15, 2018. Study report not available at the time of dictation. TECHNIQUE: CT angiography of the chest was performed without IV contrast followed by IV contrast, including 3D post processing CTA image reconstruction. FINDINGS: Decaler film demonstrates sideplate and screws left scapula. Lumbosacral fusion hardware. Right hip arthroplasty changes. Lung windows demonstrate linear band densities bilateral lower lobes and lingula. This likely represents subsegmental atelectasis. Soft tissue windows demonstrate normal variant origin left vertebral artery off the thoracic aorta. Thoracic aorta although limited due to bolus timing demonstrates normal course and caliber without dissection. Heart size is prominent. Small pericardial effusion. No appreciated coronary artery calcifications. No pleural effusions. Pulmonary artery opacification is of moderate diagnostic quality. No pulmonary artery filling defects. No appreciated lymphadenopathy. Included upper abdomen is within normal limits. Bone windows demonstrate sideplate and screws left scapula. Orthopedic hardware appears to be well-seated without failure. No appreciated acute osseous process. IMPRESSION: 1. No pulmonary embolism or secondary findings to indicate acute thromboembolic disease. 2. Otherwise no findings to indicate source of patient's symptoms. Please see above for details. Electronically signed by Jozef Farrell 04-28-2025 8:58 PM
--- NOTE | 2025-04-28 21:11 | CT Scan Report ---
EXAMINATION: CT of the abdomen and pelvis performed after the administration of IV contrast. TECHNIQUE: Helical CT images from the lung bases through the symphysis pubis were obtained with contrast. Coronal and sagittal reformatted images were generated at a workstation for further assessment. Dose reduction techniques were achieved by using automatic exposure control and/or adjustment of mA and/or kV according to patient size and/or use of iterative reconstruction technique. HISTORY: Abdominal pain. COMPARISON: April 27, 2024 study report not available at the time of dictation. FINDINGS: Rod Finisher film demonstrates surgical clips right upper abdomen. Lumbosacral fusion hardware. Right hip arthroplasty changes. Lung windows demonstrate minimal bibasilar subsegmental atelectasis and/or scarring. Soft tissue windows demonstrate cholecystectomy changes. 1 cm hypodensity anterior inferior left liver lobe. Hounsfield units measure simple fluid. This likely represents a benign cyst. Similar smaller focus right liver lobe. Prominent pancreatic duct. Pancreas is otherwise within normal limits. Portions of the exam limited secondary to streak artifact from right hip arthroplasty hardware. Uterus and adnexa are within normal limits. Prominent gas distended and to lesser extent stool-filled large bowel. No mechanical obstruction. No mass. Appendix is within normal limits. Prominent air and fluid distended loops of lower abdomen small bowel. Additional prominent distal small bowel wall thickness and prominent folds. Element of absent normal distal ileum with similar jejunal morphology. This is not present on prior exam. No appreciated mass or obstruction. Remaining solid and hollow organs of the abdomen and pelvis are within normal limits. No free air or free fluid. Lumbosacral fusion changes and laminectomies. Bone windows demonstrate lumbosacral posterior fusion hardware and interbody grafts. Orthopedic hardware appears to be intact without appreciated loosening. No appreciated acute osseous process. IMPRESSION: 1. Nonspecific segmental wall thickening and somewhat jejunal fold transformation of the distal small bowel. Suspect inflammatory process. No discrete mass. No obstruction. Small bowel follow-through would be helpful for further characterization. 2. Prominent gas distended and to a lesser extent stool-filled large bowel. No mechanical obstruction or acute process at this level. This is nonspecific. No additional findings to indicate source of patient's symptoms. Please see above for details. Electronically signed by Jozef Farrell 04-28-2025 9:11 PM
--- NOTE | 2025-04-28 23:26 | History & Physical Report ---
Date of Service April 28, 2025 Assessment & Plan (1) Asthma exacerbation: Plan: 64-year-old female with past med history significant for allergic rhinitis, mild persistent asthma, vitamin D deficiency, low back pain, attention deficit disorder, history of spinal surgery, seasonal allergies presents with ongoing shortness of breath, cough and chest tightness. Patient states having cough and shortness of breath going on for last 6 weeks. She completed 2 doses of prednisone tapering. Currently she is on prednisone 10 mg daily. She was started on a new inhaler recently. She is following with pulmonary and allergy. But when her prednisone dose was reduced to 10 mg she started again having worsening shortness of breath, and chest tightness. She has cough and brings whitish phlegm. Denies any fevers. Has headache. Last Thursday she had some d ouble vision for 1 day but that got resolved. No earache. Has some runny nose and sore throat. Appetite is okay. No nausea. Had some abdominal pain for last couple of days but it got resolved now. Normal bowel and bladder movements. Hemodynamics are okay. Asthma exacerbation Enterorhinovirus infection possibly causing the flare Droplet precautions Solu-Medrol 40 mg 3 times daily, nebs [id number] and as needed Continue home inhalers If Not improving will consult pulmonary Chest tightness Mostly from above EKG okay Will follow troponins and echo Mild pericardial effusion Will follow echo Cardiac consult in a.m. Distal small bowel thickening On CAT scan Had abdominal discomfort couple of days but that got resolved now GI consult for any recommendations Allergic rhinitis Continue home medications DVT prophylaxis Lovenox Disposition Med/telemetry Full code History of Present Illness Chief Complaint: Shortness of breath and chest tightness Primary Care Provider: Gali Edwards DO 64-year-old female with past med history significant for allergic rhinitis, mild persistent asthma, vitamin D deficiency, low back pain, attention deficit disorder, history of spinal surgery, seasonal allergies presents with ongoing shortness of breath, cough and chest tightness. Patient states having cough and shortness of breath going on for last 6 weeks. She completed 2 doses of prednisone tapering. Currently she is on prednisone 10 mg daily. She was started on a new inhaler recently. She is following with pulmonary and allergy. But when her prednisone dose was reduced to 10 mg she started again having worsening shortness of breath, and chest tightness. She has cough and brings whitish phlegm. Denies any fevers. Has headache. Last Thursday she had some double vision for 1 day but that got resolved. No earache. Has some runny nose and sore throat. Appetite is okay. No nausea. Had some abdominal pain for last couple of days but it got resolved now. Normal bowel and bladder movements. Hemodynamics are okay. Past medical history. As mentioned above. Past surgical history. Breast lesion excision on the left side. Colonoscopy and EGD. EGD with endoscopic ultrasound. Left repair of shoulder dislocation. Spinal surgery. Social history. No smoking. Alcohol rarely. No drug use. Family history. Paternal grandfather had alcoholism. Father had heart disease. Mental disorder. Mother had lung cancer. Allergies Allergy/AdvReac Type Severity Reaction Status Date / Time nickel Allergy Mild red, burny Verified 04/19/25 08:39 , rash type reaction benzoin Allergy Unknown Rash Verified 04/19/25 08:39 gabapentin Allergy Unknown Rash Verified 04/19/25 08:39 Home Medications Medication Instructions Recorded Confirmed Type albuterol sulfate 90 mcg/actuation 2 inh inhalation Q4H PRN Shortness 04/28/25 04/28/25 History aerosol inhaler Of Breath Or Wheezing fluticasone fur. 200 mcg-umeclid 1 inh inhalation DAILY 04/28/25 04/28/25 History 62.5 mcg-vilant 25 mcg inhalat.powder (Trelegy Ellipta) levocetirizine 5 mg tablet 5 mg PO DAILY 04/28/25 04/28/25 History montelukast 10 mg tablet 10 mg PO DAILY 04/28/25 04/28/25 History prednisone 10 mg tablet 10 mg PO DAILY 04/28/25 04/28/25 History Past Med/Surg History Problem List (Updated 04/28/25 @ 23:23 by Tyler Hoyt MD) Asthma exacerbation Allergic rhinitis due to mold Allergic rhinitis due to dust mite Allergic rhinitis due to animals Allergic rhinitis due to pollen Severe persistent asthma Cervical radiculopathy Lumbar radiculopathy Neck pain Arthralgia Lumbar post-laminectomy syndrome Allergic rhinitis (Chronic) MONA (generalized anxiety disorder) (Chronic) Vitamin D deficiency (Chronic) Medical History History of COVID-19 (~2021) History of postoperative nausea and vomiting History of colon polyps Osteoarthritis MONA (generalized anxiety disorder) Asthma Surgical History History of lumpectomy of left breast History of shoulder surgery History of surgery on left wrist History of laparoscopic cholecystectomy History of endoscopy History of colonoscopy History of back surgery Family History Mother Cancer Father Congestive heart failure Denies family history of Ovarian cancer Prostate cancer Myocardial infarction Breast cancer Colorectal cancer Social History Smoking Status: Never smoker Second Hand Exposure: No; Do You Dip or Chew Tobacco: No; Hx Alcohol Use: No Hx Substance Use: No Preferred Language: Vietnamese Communication Ability: Effective Visual Impairment: No Limitations Hearing Ability: Normal Manager Policy Required: No Beliefs That Will Affect Care: None marital status: Current Living Situation: Alone current occupational status: employed current occupation: teacher Other Information That Helps Us Care for You: No Feels Safe at Home: Yes Safety Concerns: Feels Safe At This Time Childhood Exposure to Second-Hand Smoke: Yes Dental Care, Regularly: Yes Physical Activity Frequency: 3-4 Times per Week Seatbelt Use: always Assistive Devices: None Review of Systems Review of Systems: All systems reviewed & are unremarkable except as noted in HPI & below Physical Exam Physical Exam: General- Not in distress Head- atraumatic Eyes- PERRL. ENT- oropharynx clear Neck- supple, no JVD. Lungs- clear to auscultation mild b/l rhonchi, no wheezing Heart- regular rhythm; no murmur, no gallop. Abdomen- normal bowel sounds, soft, nontender, no distension Extremities- no pretibial edema, no erythema seen Neuro- alert, oriented PERRL, no facial palsy; no dysarthria; moves extremities Results & Data Results & Data Vital Signs (Past 12 Hours) Vital Signs Temp Pulse Pulse Resp BP BP Pulse Ox 04/28/25 21:00 60 18 152/81 H 98 04/28/25 19:48 04/28/25 19:48 72 18 141/75 H 98 04/28/25 19:47 62 04/28/25 15:26 36.5 C 89 20 150/86 H 98 O2 Del Method 04/28/25 21:00 Room Air 04/28/25 19:48 Room Air 04/28/25 19:48 Room Air 04/28/25 19:47 04/28/25 15:26 Room Air Diagnostic Findings Laboratory Results WBC 8.82 K/ul (4.8-10.8) 04/28/25 18:32 RBC 4.28 M/uL (4.20-5.40) 04/28/25 18:32 Hgb 13.6 g/dl (12.0-16.0) 04/28/25 18:32 Hct 40.8 % (37.0-47.0) 04/28/25 18:32 MCV 95.3 fL (80.0-100.0) 04/28/25 18:32 MCH 31.8 pg (25.0-34.0) 04/28/25 18:32 MCHC 33.3 g/dL (32.0-36.0) 04/28/25 18:32 RDW Std Deviation 48.5 fL (36.4-46.3) H 04/28/25 18:32 RDW Coeff of Catarino 13.7 % (11.5-14.5) 04/28/25 18:32 Plt Count 288 K/uL (130-400) 04/28/25 18:32 MPV 9.8 fL (9.4-12.4) 04/28/25 18:32 Immature Gran % (Auto) 0.3 % 04/28/25 18:32 Neut % (Auto) 72.9 % 04/28/25 18:32 Lymph % (Auto) 20.4 % 04/28/25 18:32 Bowman % (Auto) 5.4 % 04/28/25 18:32 Eos % (Auto) 0.7 % 04/28/25 18:32 Baso % (Auto) 0.3 % 04/28/25 18:32 Neut # (Auto) 6.42 K/uL (1.40-6.50) 04/28/25 18:32 Lymph # (Auto) 1.80 K/uL (1.20-3.40) 04/28/25 18:32 Bowman # (Auto) 0.48 K/uL (0.11-0.59) 04/28/25 18:32 Eos # (Auto) 0.06 K/uL (0.00-0.50) 04/28/25 18:32 Baso # (Auto) 0.03 K/uL (0.00-0.20) 04/28/25 18:32 Immature Gran # (Auto) 0.03 K/uL (0.01-0.20) 04/28/25 18:32 PT 10.6 Seconds (9.0-12.0) 04/28/25 18:32 INR 1.0 (0.9-1.1) 04/28/25 18:32 APTT 25 Seconds (21-31) 04/28/25 18:32 PTT Ratio 0.9 04/28/25 18:32 Sodium 142 mmol/L (136-145) 04/28/25 18:32 Potassium 3.8 mmol/L (3.5-5.1) 04/28/25 18:32 Chloride 105 mmol/L (98-107) 04/28/25 18:32 Carbon Dioxide 27 mmol/L (21-32) 04/28/25 18:32 Anion Gap 10 (3-11) 04/28/25 18:32 BUN 12 mg/dl (6-23) 04/28/25 18:32 Creatinine 0.68 mg/dl (0.6-1.2) 04/28/25 18:32 Est Cr Clr Drug Dosing 80.3 ml/min 04/28/25 18:32 eGFR 98.41 04/28/25 18:32 BUN/Creatinine Ratio 17.6 (10-20) 04/28/25 18:32 Glucose 85 mg/dl (70-99(Fasting)) 04/28/25 18:32 Calcium 9.7 mg/dl (8.6-10.3) 04/28/25 18:32 Magnesium 2.2 mg/dl (1.7-2.4) 04/28/25 18:32 Total Bilirubin 0.8 mg/dl (0.2-1.0) 04/28/25 18:32 AST 29 U/L (13-39) 04/28/25 18:32 ALT 34 U/L (7-52) 04/28/25 18:32 Alkaline Phosphatase 54 U/L (34-104) 04/28/25 18:32 Troponin I High Sens 6.9 pg/ml (0-14) 04/28/25 18:32 Total Protein 7.7 gm/dl (6.0-8.3) 04/28/25 18:32 Albumin 4.7 gm/dl (3.4-5.0) 04/28/25 18:32 Globulin 3.0 gm/dl (2.5-4.0) 04/28/25 18:32 Albumin/Globulin Ratio 1.6 (0.9-2) 04/28/25 18:32 Adenovirus (PCR) Not Detected (NotDetected) 04/28/25 18:32 B. pertussis DNA (PCR) Not Detected (NotDetected) 04/28/25 18:32 B.parapertussis DNA PCR Not Detected (NotDetected) 04/28/25 18:32 C. pneumoniae DNA (PCR) Not Detected (NotDetected) 04/28/25 18:32 Coronavirus OC43 (PCR) Not Detected (NotDetected) 04/28/25 18:32 Coronavirus HKU1 (PCR) Not Detected (NotDetected) 04/28/25 18:32 Coronavirus 229E (PCR) Not Detected (NotDetected) 04/28/25 18:32 SARS-CoV-2 (PCR) Not Detected (NotDetected) 04/28/25 18:32 Coronavirus NL63 (PCR) Not Detected (NotDetected) 04/28/25 18:32 Human Metapneumovir PCR Not Detected (NotDetected) 04/28/25 18:32 Influenza Type A (PCR) Not Detected (NotDetected) 04/28/25 18:32 Influenza Type B (PCR) Not Detected (NotDetected) 04/28/25 18:32 M. pneumoniae (PCR) Not Detected (NotDetected) 04/28/25 18:32 Parainfluenza 1 (PCR) Not Detected (NotDetected) 04/28/25 18:32 Parainfluenza 2 (PCR) Not Detected (NotDetected) 04/28/25 18:32 Parainfluenza 3 (PCR) Not Detected (NotDetected) 04/28/25 18:32 Parainfluenza 4 (PCR) Not Detected (NotDetected) 04/28/25 18:32 RSV (PCR) Not Detected (NotDetected) 04/28/25 18:32 Entero/Rhino (PCR) DETECTED (NotDetected) A 04/28/25 18:32 Impressions Chest X-Ray 04/28/25 15:30 Technique: A frontal view of the chest was obtained Findings: There are no confluent pulmonary infiltrates. The heart size is within normal limits. No pleural effusion or pneumothorax is seen. There is mild linear atelectasis or scar in the lung bases. There is internal fixation of the left glenoid. There is mild scoliosis Impression: Mild bibasilar atelectasis or scar Electronically signed by Neo Lezama 04-28-2025 7:55 PM Abdomen/Pelvis CT 04/28/25 19:07 EXAMINATION: CT of the abdomen and pelvis performed after the administration of IV contrast. TECHNIQUE: Helical CT images from the lung bases through the symphysis pubis were obtained with contrast. Coronal and sagittal reformatted images were generated at a workstation for further assessment. Dose reduction techniques were achieved by using automatic exposure control and/or adjustment of mA and/or kV according to patient size and/or use of iterative reconstruction technique. HISTORY: Abdominal pain. COMPARISON: April 27, 2024 study report not available at the time of dictation. FINDINGS: Pricing Associate film demonstrates surgical clips right upper abdomen. Lumbosacral fusion hardware. Right hip arthroplasty changes. Lung windows demonstrate minimal bibasilar subsegmental atelectasis and/or scarring. Soft tissue windows demonstrate cholecystectomy changes. 1 cm hypodensity anterior inferior left liver lobe. Hounsfield units measure simple fluid. This likely represents a benign cyst. Similar smaller focus right liver lobe. Prominent pancreatic duct. Pancreas is otherwise within normal limits. Portions of the exam limited secondary to streak artifact from right hip arthroplasty hardware. Uterus and adnexa are within normal limits. Prominent gas distended and to lesser extent stool-filled large bowel. No mechanical obstruction. No mass. Appendix is within normal limits. Prominent air and fluid distended loops of lower abdomen small bowel. Additional prominent distal small bowel wall thickness and prominent folds. Element of absent normal distal ileum with similar jejunal morphology. This is not present on prior exam. No appreciated mass or obstruction. Remaining solid and hollow organs of the abdomen and pelvis are within normal limits. No free air or free fluid. Lumbosacral fusion changes and laminectomies. Bone windows demonstrate lumbosacral posterior fusion hardware and interbody grafts. Orthopedic hardware appears to be intact without appreciated loosening. No appreciated acute osseous process. IMPRESSION: 1. Nonspecific segmental wall thickening and somewhat jejunal fold transformation of the distal small bowel. Suspect inflammatory process. No discrete mass. No obstruction. Small bowel follow-through would be helpful for further characterization. 2. Prominent gas distended and to a lesser extent stool-filled large bowel. No mechanical obstruction or acute process at this level. This is nonspecific. No additional findings to indicate source of patient's symptoms. Please see above for details. Electronically signed by Jozef Farrell 04-28-2025 9:11 PM Chest CTA 04/28/25 19:07 CT pulmonary angiogram with IV contrast. History: Abdominal pain. Dyspnea. COMPARISON: December 15, 2018. Study report not available at the time of dictation. TECHNIQUE: CT angiography of the chest was performed without IV contrast followed by IV contrast, including 3D post processing CTA image reconstruction. FINDINGS: Pricing Associate film demonstrates sideplate and screws left scapula. Lumbosacral fusion hardware. Right hip arthroplasty changes. Lung windows demonstrate linear band densities bilateral lower lobes and lingula. This likely represents subsegmental atelectasis. Soft tissue windows demonstrate normal variant origin left vertebral artery off the thoracic aorta. Thoracic aorta although limited due to bolus timing demonstrates normal course and caliber without dissection. Heart size is prominent. Small pericardial effusion. No appreciated coronary artery calcifications. No pleural effusions. Pulmonary artery opacification is of moderate diagnostic quality. No pulmonary artery filling defects. No appreciated lymphadenopathy. Included upper abdomen is within normal limits. Bone windows demonstrate sideplate and screws left scapula. Orthopedic hardware appears to be well-seated without failure. No appreciated acute osseous process. IMPRESSION: 1. No pulmonary embolism or secondary findings to indicate acute thromboembolic disease. 2. Otherwise no findings to indicate source of patient's symptoms. Please see above for details. Electronically signed by Jozef Farrell 04-28-2025 8:58 PM ECG Additional Comments: ECG sinus rhythm with first-degree AV block rate of 64. No significant changes found. Code Status & VTE Plan VTE Prophylaxis Plan VTE Prophylaxis will be ordered: Yes
[2025-04-29] MEDS ORDERED: ALBUTEROL HFA 8 GM INHALER INH PRN (01:12)
[2025-04-29] MEDS ORDERED: NITROGLYCERIN SL 0.4 MG/TAB TAB SL PRN (01:12)
[2025-04-29] MEDS ORDERED: POLYETHYLENE (MIRALAX) 17 GM PACK PO PRN (01:12)
[2025-04-29] MEDS ORDERED: LEVALBUTEROL 1.25 MG/3 ML NEB NEB PRN (01:12)
[2025-04-29] MEDS: MELATONIN 3 MG TAB PO PRN (02:54)
[2025-04-29 06:31] LABS: Hematocrit (blood only) 38.0 % (37.0-47.0); Hemoglobin 12.6 g/dl (12.0-16.0); Immature Granulocytes # (auto) 0.04 K/uL (0.01-0.20); Immature Granulocytes % (auto) 0.5 %; Mean Corpuscular Hemoglobin 31.3 pg (25.0-34.0); Mean Corpuscular Volume 94.5 fL (80.0-100.0); Platelet Count 220 K/uL (130-400); RDW Standard Deviation 46.7 fL (36.4-46.3); Red Blood Count 4.02 M/uL (4.20-5.40); White Blood Count 8.54 K/ul (4.8-10.8)
[2025-04-29 06:56] LABS: Anion Gap 6.0 (3-11); Blood Urea Nitrogen 14.0 mg/dl (6-23); Calcium 9.2 mg/dl (8.6-10.3); Carbon Dioxide 26.0 mmol/L (21-32); Chloride 110.0 mmol/L (98-107); Creatinine Clr Calc Pharmacy 85.3 ml/min; Glucose 117.0 mg/dl (70-99(Fasting)); Magnesium 2.2 mg/dl (1.7-2.4); Potassium 3.9 mmol/L (3.5-5.1); Sodium 142.0 mmol/L (136-145)
[2025-04-29] MEDS: LEVALBUTEROL 1.25 MG/3 ML NEB NEB SCH (07:54)
[2025-04-29] MEDS: BUDESONIDE 0.5 MG/2 ML VIAL (PULMICORT) NEB SCH (08:32)
[2025-04-29] MEDS: FORMOTEROL 20 MCG/2 ML VIAL NEB SCH (08:32)
[2025-04-29] MEDS ORDERED: FLUTICASONE FUROATE 200MCG 14 PUFFS/INHALER INH SCH (09:00)
[2025-04-29] MEDS ORDERED: NON-FORMULARY MEDICATION (Fluticasone-Umeclidin-Vilanter [Trelegy Ellipta] 200-62.5-25 mcg INH SCH (09:00)
[2025-04-29] MEDS ORDERED: UMECLIDINIUM/VILANTEROL 62.5/25MCG 7 PUFFS/INHALER INH SCH (09:00)
--- NOTE | 2025-04-29 10:47 | Gastrointestinal Consultation ---
Date of Consultation April 29, 2025 Assessment & Plan (1) Chronic abdominal pain: (2) Constipation: (3) Thickened small bowel: Patient is a very pleasant 64-year-old female who is admitted with an asthma exacerbation. We are asked to see her regarding some chronic abdominal pain and an abnormal CT scan. Certainly I am concerned with her symptoms and findings suggesting small bowel wall thickening that she could have small bowel Crohn's disease. It sounds as if she has had a fairly thorough workup as an outpatient. We can try to obtain these results. I am going to order a C-reactive protein. I will order a small bowel follow-through to follow-up on her CT findings. Some of her symptoms can also be secondary to chronic constipation. I am going to start her on MiraLAX 1 capful daily. I think she would benefit from Linzess 72 mcg daily as an outpatient. Also, given her chronic steroid usage I am going to start her on a daily PPI. She is certainly not a candidate for any type of endoscopic workup given her pulmonary issues. History of Present Illness Reason for Consultation: Abnormal CT, abdominal pain Attending Physician: Geovani Reagan MD History of Present Illness Patient is a very pleasant 64-year-old female who was admitted to the hospital secondary to an asthma exacerbation. She states she has been struggling with her asthma for several weeks. She has received 2 courses of steroids. Due to progressive shortness of breath and cough, she was admitted into the hospital. She underwent a CT scan of the abdomen and pelvis on admission. This revealed constipation as well as some segmental wall thickening of her distal small bowel. The patient tells me she has a long history with abdominal pain. She describes it as fairly generalized. She thinks she has had this for about the past 5 years. She states generally she will have several loose bowel movements in the morning and then be fine the rest of the day. She states moving her bowels does not improve her pain. She has seen a GI physician at [facility] for this. She has been diagnosed with IBS. At 1 point, she was given Colestid for postcholecystectomy diarrhea. She states this medication worked fairly well for about 1 year. She is no longer taking this. She does admit to some weight loss over the past few years which has been unintentional. She denies any rashes. She does have significant joint pain but she attributes this to typical osteo arthritis symptoms. She has never been diagnosed with Crohn's disease. She does not have a family history of inflammatory bowel disease. She does note that when she gets on steroids her symptoms overall improved. Allergies Allergy/AdvReac Type Severity Reaction Status Date / Time nickel Allergy Mild red, burny Verified 04/19/25 08:39 , rash type reaction benzoin Allergy Unknown Rash Verified 04/19/25 08:39 gabapentin Allergy Unknown Rash Verified 04/19/25 08:39 Home Medications Medication Instructions Recorded Confirmed Type albuterol sulfate 90 mcg/actuation 2 inh inhalation Q4H PRN Shortness 04/28/25 04/28/25 History aerosol inhaler Of Breath Or Wheezing fluticasone fur. 200 mcg-umeclid 1 inh inhalation DAILY 04/28/25 04/28/25 History 62.5 mcg-vilant 25 mcg inhalat.powder (Trelegy Ellipta) levocetirizine 5 mg tablet 5 mg PO DAILY 04/28/25 04/28/25 History montelukast 10 mg tablet 10 mg PO DAILY 04/28/25 04/28/25 History prednisone 10 mg tablet 10 mg PO DAILY 04/28/25 04/28/25 History Patient History Medical History History of COVID-19 (~2021) History of postoperative nausea and vomiting History of colon polyps Osteoarthritis MONA (generalized anxiety disorder) Asthma Surgical History History of lumpectomy of left breast History of shoulder surgery History of surgery on left wrist History of laparoscopic cholecystectomy History of endoscopy History of colonoscopy History of back surgery Family History Mother Cancer Father Congestive heart failure Denies family history of Ovarian cancer Prostate cancer Myocardial infarction Breast cancer Colorectal cancer Social History Smoking Status: Never smoker Second Hand Exposure: No; Do You Dip or Chew Tobacco: No; Hx Alcohol Use: No Hx Substance Use: No Preferred Language: Luxembourgish Communication Ability: Effective Visual Impairment: No Limitations Hearing Ability: Normal Telephone Station Installer Required: No Beliefs That Will Affect Care: None marital status: Current Living Situation: Alone current occupational status: employed current occupation: teacher Other Information That Helps Us Care for You: No Feels Safe at Home: Yes Safety Concerns: Feels Safe At This Time Childhood Exposure to Second-Hand Smoke: Yes Dental Care, Regularly: Yes Physical Activity Frequency: 3-4 Times per Week Seatbelt Use: always Assistive Devices: None Physical Exam Constitutional: WD/WN, vitals as above Eyes: PERRL, conjunctivae normal, anicteric sclerae Neck: trachea midline, no thyromegaly Respiratory: Auscultation: + wheezes Gastrointestinal (Abdomen): Soft, mild diffuse tenderness, no guarding, no rebound, no hepatosplenomegaly Musculoskeletal: no cyanosis or clubbing, extremities motor strength 5/5 Results & Data Vital Signs (Past 12 Hours) Vital Signs Temp Pulse Pulse Resp BP BP Pulse Ox 04/29/25 08:32 91 H 16 97 04/29/25 07:55 72 16 98 04/29/25 07:36 36.7 C 68 18 117/73 96 04/29/25 07:25 68 04/29/25 02:22 36.6 C 58 L 16 132/68 97 04/29/25 00:40 67 04/29/25 00:30 04/29/25 00:30 36.9 C 56 L 16 143/74 H 97 04/29/25 00:10 36.8 C 61 17 140/69 97 04/28/25 23:00 36.6 C 60 16 114/67 98 O2 Del Method 04/29/25 08:32 Room Air 04/29/25 07:55 Room Air 04/29/25 07:36 Room Air 04/29/25 07:25 04/29/25 02:22 Room Air 04/29/25 00:40 04/29/25 00:30 Room Air 04/29/25 00:30 Room Air 04/29/25 00:10 Room Air 04/28/25 23:00 Room Air PG Care Time/CCT Total # of Minutes Spent Total Time Spent with Patient: Total time spent is greater than 50% in coordination of care (as documented) at patient's floor/unit and/or counseling patient: Coding Level of Care Code 33481 IN/OBS CONSULT LVL 4,60M Diagnoses Chronic abdominal pain R10.9; G89.29 Constipation K59.00 Thickened small bowel K63.9
[2025-04-29] MEDS: MONTELUKAST SODIUM 10 MG TABLET PO SCH (10:55)
[2025-04-29] MEDS: CETIRIZINE HCL 10 MG TABLET PO SCH (10:55)
[2025-04-29] MEDS: ENOXAPARIN INJ 40 MG/0.4 ML SYR SQ SCH (10:55)
--- NOTE | 2025-04-29 12:06 | XCELERA ---
[id number] \\[id number]
--- NOTE | 2025-04-29 13:01 | Hospitalist Progress Note ---
Date of Service April 29, 2025 Assessment & Plan (1) Asthma exacerbation: Plan: 64-year-old female with past med history significant for allergic rhinitis, mild persistent asthma, vitamin D deficiency, low back pain, attention deficit disorder, history of spinal surgery, seasonal allergies presents with ongoing shortness of breath, cough and chest tightness. Patient states having cough and shortness of breath going on for last 6 weeks. She completed 2 doses of prednisone tapering. Currently she is on prednisone 10 mg daily. She was started on a new inhaler recently. She is following with pulmonary and allergy. Asthma exacerbation Rhinovirus infection Patient presented to the hospital with shortness of breath, cough and chest tightness. Respiratory panel positive for rhinovirus infection Chest x-ray, CTA chestno acute finding Continue [id number] nebulizers, continue budesonide and formoterol nebs Continue IV Solu-Medrol Droplet precaution. Patient has follow-up with pulmonology in the next few days. Mild pericardial effusion- seen in CTA chest, echo confirm small pericardial effusion, no tamponade. Distal small bowel thickening On CAT scan Had abdominal discomfort couple of days but that got resolved now GI Consulted; recommended small bowel follow through; will follow up on reccs. Allergic rhinitisContinue home medications DVT prophylaxis Lovenox Disposition Med/telemetry Full code Please note the above document was generated using voice recognition software. It may contain grammatical, syntax or spelling errors. Any formal questions or concerns about the content, text or information contained within the body of this dictation should be directly addressed to the provider for clarification Admission and Anticipated Discharge Date Admission Date: April 28, 2025 Subjective Patient seen and examined. She continues to have persistent cough. No shortness of breath. No chest pain. Reports some abdominal discomfort. Review of Systems Review of Systems: All systems reviewed & are unremarkable except as noted in Subjective Physical Exam Physical Exam: Constitutional: WD/WN, vitals as above, NAD, sitting up in bed, pleasant, conversing easily Respiratory: b/l vesicular breath sounds Cardiovascular: RRR, no murmur, no edema Vessels: no JVD or carotid bruit Chest: normal inspection of chest Abdomen: normal bowel sounds, soft, nontender, no hepatosplenomegaly Musculoskeletal: no cyanosis or clubbing, extremities motor strength 5/5 Skin: no rashes, warm and dry normal turgor Neurologic: PERRL, EOMI, accommodation nl, no face palsy, no dysarthria CN's II- XI intact bilaterally and moves all extremities Psychiatric: A+Ox3, euthymic affect Results & Data Results & Data Vital Signs (Past 12 Hours) Vital Signs Temp Pulse Pulse Resp BP Pulse Ox O2 Del Method 04/29/25 11:41 36.8 C 82 20 154/81 H 98 Room Air 04/29/25 11:22 90 18 98 Room Air 04/29/25 10:00 Room Air 04/29/25 08:32 91 H 16 97 Room Air 04/29/25 07:55 72 16 98 Room Air 04/29/25 07:36 36.7 C 68 18 117/73 96 Room Air 04/29/25 07:25 68 04/29/25 02:22 36.6 C 58 L 16 132/68 97 Room Air
[2025-04-29] MEDS ORDERED: INFLUENZA VACC TS2025-26(6m+)/PF (IIV3) 0.5mL Syr IM ONE (15:00)
[2025-04-29] MEDS: AZITHROMYCIN 250 MG TAB PO SCH (15:34)
--- NOTE | 2025-04-29 15:45 | Cardiology Consultation ---
Date of Consultation April 29, 2025 Assessment & Plan (1) Pericardial effusion: (2) Rhinovirus infection: (3) Asthma exacerbation: Plan 64 year female with past medical history of mild persistent asthma, seasonal allergies, allergic rhinitis, ADHD, who presents to ED with shortness of breath, cough, chest tightness. Found to be positive for rhinovirus. - shortness of breath, cough, chest tightness likely due to rhinovirus and asthma exacerbation - echo with LVEF 60-65%, small pericardial effusion, no cardiac tamponade, grade II diastolic dysfunction - Troponin negative x2, EKG without acute ischemic changes, low suspicion for ACS - supportive measures for rhinovirus - continue to monitor on telemetry - monitor pericardial effusion with echo as outpatient Case discussed with attending physician, further recommendations per Dr. Garcia. I spent a total of 40 minutes on the date of service in preparation, delivery, and documentation of the care provided to this patient excluding any time spent in the performance of separately billed services. This visit was a split-shared visit with the substantial portion of the decision making performed by the supervising food counter worker/billing provider. BEKA Butterfield Cardiology Supervising Physician Co-Signing Physician Notes Patient seen and examined. Past medical history, surgical history, social history and family history have been reviewed. The medical record and all the above studies have been reviewed. Case DW LEIGH including management. ECHO 04/29/25 Interpretation Summary Left ventricular systolic function is normal. Left Ventricular Ejection Fraction = 60-65%. Small pericardial effusion. There are no echocardiographic indications of cardiac tamponade. Diastolic dysfunction, Grade II (pseudonormalization pattern). Small pericardial effusion - no tamponade Acute viral syndrome - Rhinovirus infection - apparently symptomatic since about 6 weeks with significant improvement since admission Asthma exacerbation MO R/O continue medical optimization bronchodilators F/U with cardiology post discharge F/U ECHO as outpatient as per cardiology f/u please call if needed will sign off History of Present Illness Reason for Consultation: pericardial effusion Requesting Physician: Hospitalist Attending Physician: Geovani Reagan MD History of Present Illness 64 year female with past medical history of mild persistent asthma, seasonal allergies, allergic rhinitis, ADHD, who presents to ED with shortness of breath, cough, chest tightness. States symptoms have been present for at least 6 weeks. She completed 2 doses of prednisone tapering, when she was tapering off she started having worsening shortness of breath, and chest tightness. She was start ed on a new inhaler recently. She is following with pulmonary and allergy. [place] that her symptoms acutely worsened, she was unable to talk without getting short of breath, so presented to ED. Troponin negative x2. EKG without acute ischemic changes. Echo with normal LVEF, small pericardial effusion. Positive for rhinovirus. Cardiology consulted due to pericardial effusion. On exam today, she states she is feeling better. Had just received nebulizer treatment, which she thinks helped. Chest tightness better, feels that it is worse when she is sitting up. Denies palpitations, lightheadedness, edema. Denies tobacco, alcohol, illicit drug use. Active at baseline. Is pediatric physical therapist. Denies history of [place], cardiac stents, heart failure. Father with history of heart failure, was smoker, in 70s. Mother . Allergies Allergy/AdvReac Type Severity Reaction Status Date / Time nickel Allergy Mild red, burny Verified 04/19/25 08:39 , rash type reaction benzoin Allergy Unknown Rash Verified 04/19/25 08:39 gabapentin Allergy Unknown Rash Verified 04/19/25 08:39 Home Medications Medication Instructions Recorded Confirmed Type albuterol sulfate 90 mcg/actuation 2 inh inhalation Q4H PRN Shortness 04/28/25 04/28/25 History aerosol inhaler Of Breath Or Wheezing fluticasone fur. 200 mcg-umeclid 1 inh inhalation DAILY 04/28/25 04/28/25 History 62.5 mcg-vilant 25 mcg inhalat.powder (Trelegy Ellipta) levocetirizine 5 mg tablet 5 mg PO DAILY 04/28/25 04/28/25 History montelukast 10 mg tablet 10 mg PO DAILY 04/28/25 04/28/25 History prednisone 10 mg tablet 10 mg PO DAILY 04/28/25 04/28/25 History Patient History Medical History History of COVID-19 (~2021) denies hospitalization-symptoms resolved History of postoperative nausea and vomiting denies needing scop patch History of colon polyps Osteoarthritis MONA (generalized anxiety disorder) Asthma currently well controlled/use albuterol 1-2 x per month.no recent flares. Surgical History History of lumpectomy of left breast History of shoulder surgery x3 left History of surgery on left wrist hardware History of laparoscopic cholecystectomy and hernia repair using mesh. History of endoscopy History of colonoscopy History of back surgery x 3 Family History Mother Cancer Father Congestive heart failure Denies family history of Ovarian cancer Prostate cancer Myocardial infarction Breast cancer Colorectal cancer Social History Smoking Status: Never smoker Second Hand Exposure: No; Do You Dip or Chew Tobacco: No; Hx Alcohol Use: No Hx Substance Use: No Preferred Language: [place] Communication Ability: Effective Visual Impairment: No Limitations Hearing Ability: Normal University Relations Director Required: No Beliefs That Will Affect Care: None marital status: Current Living Situation: Alone current occupational status: employed current occupation: teacher Other Information That Helps Us Care for You: No Feels Safe at Home: Yes Safety Concerns: Feels Safe At This Time Childhood Exposure to Second-Hand Smoke: Yes Dental Care, Regularly: Yes Physical Activity Frequency: 3-4 Times per Week Seatbelt Use: always Assistive Devices: None Review of Systems Review of Systems: CONSTITUTIONAL: No change in weight, No weakness, No fatigue and No fevers, No sweats or chills. PULMONARY: + cough, no sputum, or hemoptysis, No wheezing, + shortness of breath. CARDIOVASCULAR: + chest pain, No dyspnea on exertion, No edema, No palpitations and No syncope. GASTROINTESTINAL: No abdominal pain, No change in bowel habits, No significant heartburn, No nausea, No vomiting, No diarrhea, No constipation, No blood in stools or black tarry stools. No dysphagia. HEMATOLOGIC: No abnormal bleeding and No bruising. NEUROLOGICAL: Normal balance, No headaches and No weakness. Physical Exam Physical Exam: General: No acute distress. A+Ox3. HEENT: Normocephalic. Atraumatic. PERRL. EOMI. Conjunctiva and sclera clear. NECK: No carotid bruits. No JVD. Carotid upstrokes are brisk. Heart: RRR. S1 and S2 noted. No murmur. No rubs or gallops. PMI non displaced. Lungs: Clear to auscultation. No wheezes. No rhonchi. No rales. Abdomen: Normal bowel sounds. Soft. Nontender. No masses or organomegaly. No abdominal bruits. Extremities: No edema. No clubbing or cyanosis. Pulses: radial=2/4, posterior tibial=2/4, dorsalis pedis = 2/4. NEURO: No focal deficits. PSYCH: Appropriate affect and insight. Results & Data Vital Signs (Past 12 Hours) Vital Signs Temp Pulse Pulse Resp BP Pulse Ox O2 Del Method 04/29/25 15:30 36.8 C 73 18 129/71 97 Room Air 04/29/25 15:17 69 16 98 Room Air 04/29/25 11:41 36.8 C 82 20 154/81 H 98 Room Air 04/29/25 11:22 90 18 98 Room Air 04/29/25 10:00 Room Air 04/29/25 08:32 91 H 16 97 Room Air 04/29/25 07:55 72 16 98 Room Air 04/29/25 07:36 36.7 C 68 18 117/73 96 Room Air 04/29/25 07:25 68 Laboratory Results Cardiac Enzymes 04/28/25 04/29/25 Range/Units 18:32 05:47 AST 29 (13-39) U/L Troponin I High Sens 6.9 7.0 (0-14) pg/ml Coagulation 04/28/25 Range/Units 18:32 PT 10.6 (9.0-12.0) Seconds APTT 25 (21-31) Seconds CBC 04/28/25 04/29/25 Range/Units 18:32 05:47 WBC 8.82 8.54 (4.8-10.8) K/ul RBC 4.28 4.02 L (4.20-5.40) M/uL Hgb 13.6 12.6 (12.0-16.0) g/dl Hct 40.8 38.0 (37.0-47.0) % Plt Count 288 220 (130-400) K/uL Neut # (Auto) 6.42 7.60 H (1.40-6.50) K/uL Lymph # (Auto) 1.80 0.67 L (1.20-3.40) K/uL [place] # (Auto) 0.48 0.15 (0.11-0.59) K/uL Eos # (Auto) 0.06 0.06 (0.00-0.50) K/uL Baso # (Auto) 0.03 0.02 (0.00-0.20) K/uL Comprehensive Metabolic Panel 04/28/25 04/29/25 Range/Units 18:32 05:47 Sodium 142 142 (136-145) mmol/L Potassium 3.8 3.9 (3.5-5.1) mmol/L Chloride 105 110 H (98-107) mmol/L Carbon Dioxide 27 26 (21-32) mmol/L BUN 12 14 (6-23) mg/dl Creatinine 0.68 0.64 (0.6-1.2) mg/dl Glucose 85 117 H (70-99(Fasting)) mg/dl Calcium 9.7 9.2 (8.6-10.3) mg/dl AST 29 (13-39) U/L ALT 34 (7-52) U/L Alkaline Phosphatase 54 (34-104) U/L Total Protein 7.7 (6.0-8.3) gm/dl Albumin 4.7 (3.4-5.0) gm/dl Intake and Output 04/29/25 04/29/25 04/29/25 06:59 14:59 22:59 Intake Total 250 / 250 Balance 250 / 250 Intake: Oral 250 / 250 Other: Other Intake Source npo # Unmeasured Voids 2 Weight 64.4 kg Weight Measurement Method Standing Scale Diagnostic Findings Echo 04/29/25: LVEF 60-65%, small pericardial effusion, no cardiac tamponade, grade II diastolic dysfunction PG Care Time/CCT Total # of Minutes Spent Total Time Spent with Patient: Total time spent is greater than 50% in coordination of care (as documented) at patient's floor/unit and/or counseling patient: [place] [address] IN/OBS CONSULT LVL 5,80M Patient Type New Medical Decision Making High Complexity Diagnoses Pericardial effusion I31.39 Rhinovirus infection B34.8 Exacerbation of asthma, unspecified asthma severity, unspecified whether persistent J45.901 Asthma persistence: unspecified Asthma severity: unspecified severity (3) Asthma exacerbation Asthma persistence: unspecified Asthma severity: unspecified severity Qualified Code(s): J45.901 - Unspecified asthma with (acute) exacerbation
[2025-04-29] MEDS: ACETAMINOPHEN 325 MG TAB PO PRN (20:24)
--- NOTE | 2025-04-29 22:01 | Electrocardiogram Report ---
Test Reason : Blood Pressure : */* mmHG Vent. Rate : 64 BPM Atrial Rate : 64 BPM P-R Int : 234 ms QRS Dur : 68 ms QT Int : 390 ms P-R-T Axes : 48 12 38 degrees QTcB Int : 402 ms Sinus rhythm with 1st degree A-V block Low voltage QRS Septal infarct (cited on or before 11-Jan-2022) Abnormal ECG When compared with ECG of 21-May-2024 10:01, No significant change was found Confirmed by Ronak Arechiga ([id number]) on 04/29/2025 10:01:22 PM Referred By: REFERRED SELF Confirmed By: Ronak Arechiga
--- NOTE | 2025-04-29 22:02 | Electrocardiogram Report ---
Test Reason : Blood Pressure : */* mmHG Vent. Rate : 68 BPM Atrial Rate : 68 BPM P-R Int : 224 ms QRS Dur : 72 ms QT Int : 418 ms P-R-T Axes : 62 16 57 degrees QTcB Int : 444 ms Sinus rhythm with 1st degree A-V block Low voltage QRS Borderline ECG When compared with ECG of 29-Apr-2025 06:12, No significant change was found Confirmed by Ronak Arechiga ([id number]) on 04/29/2025 10:02:16 PM Referred By: REFERRED SELF Confirmed By: Ronak Arechiga
--- NOTE | 2025-04-29 22:02 | Electrocardiogram Report ---
Test Reason : Blood Pressure : */* mmHG Vent. Rate : 64 BPM Atrial Rate : 64 BPM P-R Int : 226 ms QRS Dur : 70 ms QT Int : 414 ms P-R-T Axes : 67 23 59 degrees QTcB Int : 427 ms Sinus rhythm with sinus arrhythmia with 1st degree A-V block Low voltage QRS Borderline ECG When compared with ECG of 28-Apr-2025 18:30, No significant change Confirmed by Ronak Arechiga ([id number]) on 04/29/2025 10:02:04 PM Referred By: REFERRED SELF Confirmed By: Ronak Arechiga
[2025-04-30] MEDS: KETOROLAC TROMETHAMINE 15 MG/ML VIAL IV ONE (05:47)
--- NOTE | 2025-04-30 06:45 | Electrocardiogram Report ---
Test Reason : Blood Pressure : */* mmHG Vent. Rate : 63 BPM Atrial Rate : 63 BPM P-R Int : 210 ms QRS Dur : 78 ms QT Int : 406 ms P-R-T Axes : 68 26 68 degrees QTcB Int : 415 ms Sinus rhythm with 1st degree A-V block Low voltage QRS Poor R-wave progression ; consider septal infarct, lead placement, or normal variant Abnormal ECG When compared with ECG of 30-Apr-2025 04:17, No significant change was found Confirmed by Ronak Arechiga ([id number]) on 04/30/2025 6:45:17 AM Referred By: REFERRED SELF Confirmed By: Ronak Arechiga
--- NOTE | 2025-04-30 06:45 | Electrocardiogram Report ---
Test Reason : Blood Pressure : */* mmHG Vent. Rate : 65 BPM Atrial Rate : 65 BPM P-R Int : 212 ms QRS Dur : 78 ms QT Int : 416 ms P-R-T Axes : 71 25 67 degrees QTcB Int : 432 ms Sinus rhythm with sinus arrhythmia with 1st degree A-V block Low voltage QRS Poor R-wave progression ; consider septal infarct, lead placement, or normal variant Abnormal ECG When compared with ECG of 29-Apr-2025 06:14, No significant change was found Confirmed by Ronak Arechiga ([id number]) on 04/30/2025 6:45:02 AM Referred By: REFERRED SELF Confirmed By: Ronak Arechiga
[2025-04-30 08:11] VITALS: PULSE 71
--- NOTE | 2025-04-30 11:09 | Gastroenterology Progress Note ---
Date of Service April 30, 2025 Assessment & Plan (1) Thickened small bowel: (2) Constipation: (3) Chronic abdominal pain: Plan: Patient appears much better. She is stable for discharge from a GI standpoint. We would be happy to follow-up with her in the office. I would discharge her home on Linzess 72 mcg daily and Protonix 40 mg daily. I would like her to get a small bowel follow-through as an outpatient to further evaluate the thickening noted on CT scan. Her C-reactive protein was normal so this is certainly reassuring. Admission and Anticipated Discharge Date Admission Date: April 28, 2025 Subjective Patient looks much better today. She has much less coughing and seems more at ease with her breathing. She states her abdominal complaints have improved significantly. She has been started on Linzess and Protonix. Small bowel follow-through will not get done this weekend so we can proceed with this as an outpatient. Physical Exam Constitutional: WD/WN, vitals as above Gastrointestinal (Abdomen): normal bowel sounds, soft, nontender, no hepatosplenomegaly Results & Data Results & Data Vital Signs (Past 12 Hours) Vital Signs Temp Pulse Pulse Pulse Resp BP Pulse Ox 04/30/25 08:10 71 16 98 04/30/25 08:06 37.0 C 68 16 96/55 L 96 04/30/25 07:06 64 04/30/25 04:10 36.7 C 76 18 112/66 97 04/30/25 00:04 36.7 C 73 18 116/67 98 O2 Del Method 04/30/25 08:10 Room Air 04/30/25 08:06 Room Air 04/30/25 07:06 04/30/25 04:10 Room Air 04/30/25 00:04 Room Air Laboratory Results 04/30/25 05:52 C-Reactive Protein < 0.50 Medications Administered Home Medications Medication Instructions Recorded Confirmed Last Taken albuterol sulfate 90 mcg/actuation 2 inh inhalation Q4H PRN Shortness 04/28/25 04/28/25 Unknown aerosol inhaler Of Breath Or Wheezing fluticasone fur. 200 mcg-umeclid 1 inh inhalation DAILY 04/28/25 04/28/25 Unknown 62.5 mcg-vilant 25 mcg inhalat.powder (Trelegy Ellipta) levocetirizine 5 mg tablet 5 mg PO DAILY 04/28/25 04/28/25 Unknown montelukast 10 mg tablet 10 mg PO DAILY 04/28/25 04/28/25 Unknown prednisone 10 mg tablet 10 mg PO DAILY 04/28/25 04/28/25 Unknown azithromycin 250 mg tablet 500 mg (2 x 250 mg) PO QAM 1 day 04/30/25 Unknown #2 tabs budesonide 0.5 mg/2 mL suspension 0.5 mg (2 mL) NEB BIDR #60 mL 04/30/25 Unknown for nebulization formoterol fumarate 20 mcg/2 mL 20 mcg (2 mL) NEB BIDR #120 mL 04/30/25 Unknown solution for nebulization (Perforomist) linaclotide 72 mcg capsule 72 mcg PO DAILY #30 caps 04/30/25 Unknown (Linzess) pantoprazole 40 mg tablet,delayed 40 mg PO QAM #14 tabs 04/30/25 Unknown release polyethylene glycol 3350 17 gram 17 g PO DAILY PRN constipation #30 04/30/25 Unknown oral powder packet (Miralax) ea prednisone 20 mg tablet See Taper PO DAILY #14 tabs 04/30/25 Unknown Active Medications Generic Name Dose Route Start Last Admin Trade Name Freq PRN Reason Stop Dose Admin Acetaminophen 650 mg 04/29/25 01:12 04/30/25 04:10 Acetaminophen 325 Mg Tab PO 05/29/25 01:11 650 mg Q4H PRN Administration Pain or Fever Azithromycin 500 mg 04/29/25 13:15 04/30/25 08:59 Azithromycin 250 Mg Tab PO 05/02/25 13:14 500 mg QAM HERNANDEZ Administration Budesonide 0.5 mg 04/29/25 08:20 04/30/25 08:09 Budesonide 0.5 Mg/2 Ml Vial (Pulmicort) NEB 05/29/25 08:19 0.5 mg BIDR HERNANDEZ Administration Cetirizine HCl 10 mg 04/29/25 09:00 04/30/25 09:00 Cetirizine Hcl 10 Mg Tablet PO 05/29/25 08:59 10 mg DAILY HERNANDEZ Administration Enoxaparin Sodium 40 mg 04/29/25 09:00 04/30/25 09:00 Enoxaparin Inj 40 Mg/0.4 Ml Syr SQ 05/29/25 08:59 40 mg Q24H HERNANDEZ Administration Formoterol Fumarate 20 mcg 04/29/25 08:20 04/30/25 08:10 Formoterol 20 Mcg/2 Ml Vial NEB 05/29/25 08:19 20 mcg BIDR HERNANDEZ Administration Methylprednisolone 40 mg/ 0.64 mls @ 1.5 mls/min 04/29/25 09:00 04/30/25 09:00 Syringe IV 05/29/25 08:59 1.5 mls/min TID HERNANDEZ Administration Levalbuterol HCl 1.25 mg 04/29/25 07:00 04/30/25 08:10 Levalbuterol 1.25 Mg/3 Ml Neb NEB 05/29/25 06:59 Not Given QIDR HERNANDEZ Linaclotide 72 mcg 04/30/25 09:00 04/30/25 08:59 Linaclotide 72 Mcg Capsule PO 05/30/25 08:59 72 mcg DAILY HERNANDEZ Administration Melatonin 3 mg 04/29/25 02:43 04/29/25 20:24 Melatonin 3 Mg Tab PO 05/29/25 02:42 3 mg HS PRN Administration Sleep Montelukast Sodium 10 mg 04/29/25 09:00 04/30/25 09:00 Montelukast Sodium 10 Mg Tablet PO 05/29/25 08:59 10 mg DAILY HERNANDEZ Administration Pantoprazole Sodium 40 mg 04/30/25 09:00 04/30/25 08:59 Pantoprazole 40 Mg Tab PO 05/30/25 08:59 40 mg QAM HERNANDEZ Administration PG Care Time/CCT Total # of Minutes Spent Total Time Spent with Patient: Total time spent is greater than 50% in coordination of care (as documented) at patient's floor/unit and/or counseling patient: Coding Level of Care Code 67575 SUB INP/OBS CARE 2/35MIN Diagnoses Thickened small bowel K63.9 Constipation K59.00 Chronic abdominal pain R10.9; G89.29
--- NOTE | 2025-04-30 11:25 | Discharge Summary ---
Date of Service April 30, 2025 Admission HPI Per Admitting Provider 64-year-old female with past med history significant for allergic rhinitis, mild persistent asthma, vitamin D deficiency, low back pain, attention deficit disorder, history of spinal surgery, seasonal allergies presents with ongoing shortness of breath, cough and chest tightness. Patient states having cough and shortness of breath going on for last 6 weeks. She completed 2 doses of prednisone tapering. Currently she is on prednisone 10 mg daily. She was started on a new inhaler recently. She is following with pulmonary and allergy. But when her prednisone dose was reduced to 10 mg she started again having worsening shortness of breath, and chest tightness. She has cough and brings whitish phlegm. Denies any fevers. Has headache. Last Thursday she had some double vision for 1 day but that got resolved. No earache. Has some runny nose and sore throat. Appetite is okay. No nausea. Had some abdominal pain for last couple of days but it got resolved now. Normal bowel and bladder movements . Hemodynamics are okay. Past medical history. As mentioned above. Past surgical history. Breast lesion excision on the left side. Colonoscopy and EGD. EGD with endoscopic ultrasound. Left repair of shoulder dislocation. Spinal surgery. Social history. No smoking. Alcohol rarely. No drug use. Family history. Paternal grandfather had alcoholism. Father had heart disease. Mental disorder. Mother had lung cancer. Admission Exam Per Admitting Provider General- Not in distress Head- atraumatic Eyes- PERRL. ENT- oropharynx clear Neck- supple, no JVD. Lungs- clear to auscultation mild b/l rhonchi, no wheezing Heart- regular rhythm; no murmur, no gallop. Abdomen- normal bowel sounds, soft, nontender, no distension Extremities- no pretibial edema, no erythema seen Neuro- alert, oriented PERRL, no facial palsy; no dysarthria; moves extremities Principal Diagnosis Asthma exacerbation Rhinovirus infection Discharge Exam Constitutional: WD/WN, vitals as above, NAD, sitting up in bed, pleasant, conversing easily Respiratory: b/l vesicular breath sounds; no wheeze Cardiovascular: RRR, no murmur, no edema Vessels: no JVD or carotid bruit Chest: normal inspection of chest Abdomen: normal bowel sounds, soft, nontender, no hepatosplenomegaly Musculoskeletal: no cyanosis or clubbing, extremities motor strength 5/5 Skin: no rashes, warm and dry normal turgor Neurologic: PERRL, EOMI, accommodation nl, no face palsy, no dysarthria CN's II- XI intact bilaterally and moves all extremities Psychiatric: A+Ox3, euthymic affect Discharge Data Allergies Allergy/AdvReac Type Severity Reaction Status Date / Time nickel Allergy Mild red, burny Verified 04/19/25 08:39 , rash type reaction benzoin Allergy Unknown Rash Verified 04/19/25 08:39 gabapentin Allergy Unknown Rash Verified 04/19/25 08:39 Consultations 04/28/25 21:36 ED Decision to Admit Stat 04/29/25 08:00 Consult Cardiology Routine Consult Gastroenterology Routine Ordered Studies 04/28/25 19:07 CT abd pelvis IV con only Stat CT angio chest PE protocol Stat 05/01/25 [place] GI series with SBFT Routine Hospital Course (1) Asthma exacerbation: 64-year-old female with past med history significant for allergic rhinitis, mild persistent asthma, vitamin D deficiency, low back pain, attention deficit disorder, history of spinal surgery, seasonal allergies presents with ongoing shortness of breath, cough and chest tightness. Patient states having cough and shortness of breath going on for last 6 weeks. She completed 2 doses of prednisone tapering. Currently she is on prednisone 10 mg daily. She was started on a new inhaler recently. She is following with pulmonary and allergy. Asthma exacerbation Rhinovirus infection Patient presented to the hospital with shortness of breath, cough and chest tightness. Respiratory panel positive for rhinovirus infection Chest x-ray, CTA chestno acute finding During the hospitalizationn, patient was treated with IV steroid, [id number] nebulizers, budesonide and formoterol nebs. Patient reported significant improvement during the hospitalization. At the time of the discharge, she was placed on budesonide, formoterol nebs twice a day, oral steroid and azithromycin. Patient has a follow-up appointment with pulmonology next few days to determine long-term management for asthma. Mild pericardial effusionn- seen in CTA chest, echo confirm small pericardial effusion, no tamponade. Cardiology was consulted; patient to follow-up as an outpatient after an echocardiogram in 1 month. Distal small bowel thickening seen On CAT scan Had abdominal discomfort couple of days but that got resolved now Plan to follow-up with GI as outpatient for futher evaluation Please note the above document was generated using voice recognition software. It may contain grammatical, syntax or spelling errors. Any formal questions or concerns about the content, text or information contained within the body of this dictation should be directly addressed to the provider for clarification Total Time Total Time Spent Total Time Spent (In Minutes): 45 Total Time Includes: Examination of the Patient, Discharge Planning, Medication Reconciliation, Communication With Other Providers and Other Discharge Plan Discharge Items Patient Disposition: Home - Self-Care Reason For Visit: ASTHMA EXACERBATION Discharge Diagnosis: Rhinovirus infection Asthma Excerebation Condition on Discharge: Fair Activity: Resume your previous activity Non-emergency contact: Primary Care Provider Call non-emergency contact if: you have any medication questions and your symptoms worsen Follow-up/Referrals: Gali Edwards DO [Primary Care Provider] - Diet: Regular Addtl Attending Provider Instructions: You were admitted to the hospital due to asthma exacerbation. You are treated with breathing treatment, steroid during the hospitalization. You are prescribed following medication for the asthma exacerbation; Take azithromycin 500 mg tomorrow. Start using budesonide nebulizer 0.5 mg twice a day Start using formoterol nebulizer twice a day. Take prednisone 40 mg for 3 days, 20 mg for 3 days and 10 mg for 3 days Please take Protonix 40 mg once a day while you are on steroids Please hold off on taking your inhaler for the time being until you are seen by pulmonology on your follow-up appointment. You were evaluated by the GI provider during the hospitalization as the CT abdomen and pelvis showed nonspecific segmental wall thickening in the distal small bowel. Please follow-up with her GI provider for further workup You are seen by cardiology during the hospitalization as echocardiogram of your heart showed fluid surrounding your heart (pericardial effusion); please follow- up with your primary care doctor and obtain echocardiogram in 4 weeks time to monitor Pending Studies at Discharge: No Stand-Alone Forms: My [employer], Smoking Cessation Medications and DC Order Prescriptions: New azithromycin 250 mg Tablet 500 mg PO QAM 1 Days Qty: 2 0RF formoterol fumarate [Perforomist] 20 mcg/2 mL Solution For Nebulization 20 mcg NEB BIDR Qty: 120 0RF polyethylene glycol 3350 [Miralax] 17 gram Powder In Packet 17 g PO DAILY PRN (Reason: constipation) Qty: 30 0RF pantoprazole 40 mg Tablet,Delayed Release (Dr/Ec) 40 mg PO QAM Qty: 14 0RF Linzess 72 mcg Capsule 72 mcg PO DAILY Qty: 30 0RF budesonide 0.5 mg/2 mL Suspension For Nebulization 0.5 mg NEB BIDR Qty: 60 0RF prednisone 20 mg tablet See Taper PO DAILY Qty: 14 0RF Taper: Taper, Blank 40 mg DAILY for 3 Days 20 mg DAILY for 3 Days 10 mg DAILY for 3 Days Continued montelukast 10 mg tablet 10 mg PO DAILY albuterol sulfate 90 mcg/actuation HFA aerosol inhaler 2 inh INHALATION Q4H PRN (Reason: Shortness Of Breath Or Wheezing) levocetirizine 5 mg tablet 5 mg PO DAILY Held Trelegy Ellipta 200-62.5-25 mcg blister with device 1 inh INHALATION DAILY Hold Instructions: Resume on 05/04/25. 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
[2025-04-30] MEDS: INFLUENZA VACC TS2025-26(6m+)/PF (IIV3) 0.5mL Syr IM ONE (11:32)
[2025-04-30 11:46] VITALS: BP 129/71; RESP 18; TEMP 98.4; O2SAT 96
== END 2025-04-30 12:14 | disposition home or self-care (01) | DRG 202 ==
LOC: ED 14:48 → INTOOBSV 23:03 → 2W 23:03